=== PATIENT | female | born 1960 | race Caucasian/White ===

== ENCOUNTER 2021-04-06 09:04 | Inpatient (IN) ==
--- NOTE | 2021-04-03 15:18 | Anesthesiology Consultation ---
Date of Service April 03, 2021 Assessment & Plan (1) Encounter for pre-operative examination: Chart Review Chart Review: Acceptable Risk for Surgery (pending preop Covid testing results and lab DOS) and Patient NOT seen in Pre Admission Testing -On current chemo- will order CBC with diff for DOS Per nursing assessment 04/03/2021, patient admits to local travel only- resides in [facility]. Wears mask in public if crowded. Patient is not vaccinated for Covid. No known Covid infection in the past 90 days. No known Covid positive contacts or Covid related symptoms. Preop Covid testing scheduled 04/04= will await results. Will also order Jackson for DOS secondary to patient not wearing mask all the time in public/not vaccinated for Covid. History Surgery Operation Date: 04/06/21 14:25 Proposed Procedures p Insertion of Access Port with Fluoroscopy - Ishan Holguin, DO Height/Weight Height: 5 ft 2 in Weight: 88.904 kg Allergies Allergy/AdvReac Type Severity Reaction Status Date / Time Penicillins Allergy Intermediate severe Verified 04/03/21 14:17 headaches Sulfa (Sulfonamide Allergy Intermediate severe Verified 04/03/21 14:17 Antibiotics) headaches Medications Home Medications Medication Instructions Recorded Confirmed Last Taken gabapentin 100 mg capsule 200 mg PO TID cap 03/21/21 04/03/21 Unknown ibuprofen 200 mg tablet 200 mg PO Q6H PRN 03/21/21 04/03/21 Unknown levothyroxine 125 mcg capsule 125 mcg PO QAM 03/21/21 04/03/21 Unknown loratadine 10 mg tablet (Claritin) 10 mg PO HS 03/21/21 04/03/21 Unknown fentanyl 12 mcg/hr transdermal 1 patch TRANSDERMAL Q72H PRN 03/30/21 04/03/21 Unknown patch ondansetron 8 mg disintegrating 8 mg PO Q8H PRN 04/03/21 04/03/21 Unknown tablet Past Medical History Medical History Hypothyroidism Small cell lung cancer, left upper lobe stage IIIa T2, N2, M0 Thyroid nodule Past Family History Family History Mother Cancer ovarian, uterine and colon Father No problems noted. Sister Cancer Leukemia Sister Lung disease Emphysema Other No family history of adverse response to anesthesia Past Surgical History Surgical History H/O thyroidectomy H/O tubal ligation H/O: hysterectomy LUCIUS BSO History of bronchoscopy x2 History of carpal tunnel surgery bilt hands History of tooth extraction all teeth Hx of colonoscopy S/P right rotator cuff repair Social History Smoking Status: Former smoker Do You Dip or Chew Tobacco: No Smoking End Date: quit 18yrs ago Hx Alcohol Use: No Hx Substance Use: No substance use type: does not use Lab Results Anesthesia Preop Results Results Anesthesia Widget: WBC 3.52 K/uL (4.8-10.8) L 03/20/21 Hgb 13.0 g/dL (12.0-16.0) 03/20/21 Hct 38.6 % (37-47) 03/20/21 Plt 167 K/uL (130-400) 03/20/21 Na 136 mmol/L (136-145) 03/20/21 K 3.8 mmol/L (3.5-5.1) 03/20/21 Cl 102 mmol/L (98-107) 03/20/21 CO2 31 mmol/L (21-32) 03/20/21 BUN 12 mg/dl (7-18) 03/20/21 Creat 0.69 mg/dl (0.6-1.2) 03/20/21 Glucose Level 118 mg/dl (70-99) H 03/20/21 Testing Electrocardiogram Date: 11/10/20 Findings: + NSR @ (85 bpm) Normal EKG per cardio. Chest X-Ray Date: 02/13/21 1 view CXR (postprocedure evaluation) No evidence of hemothorax or pneumothorax. Other Testing Chest CT 03/28/2021 = enlarging 6.7 cm prevascular mass. Stable 34 mm left upper lobe pulmonary nodule. Multiple right lung groundglass pulmonary nodule similar to the preceding study. Progressive left lower lobe atelectasis/consolidation. Brain MRI 03/09/2021 = no evidence of metastatic disease.
[~2021-04-06 09:04] MED LIST: CLINDAMYCIN 900 MG in DEXTROSE 5% 50 ML IV SCH; LR 15ML/HR IV SCH
[2021-04-06] MEDS ORDERED: ATROPINE SULFATE 0.1 MG/ML 10ML SYR IV PRN (09:48)
[2021-04-06] MEDS ORDERED: LABETALOL HCL IV 5 MG/ML 20ML IV PRN (09:48)
[2021-04-06] MEDS ORDERED: PHENYLEPHRINE 100MCG/ML 5ML SYR IV PRN (09:48)
[2021-04-06] MEDS ORDERED: fentaNYL citrate 100 MCG/2 ML VIAL IV PRN (09:48)
[2021-04-06] MEDS ORDERED: ePHEDrine sulfate 50 MG/ML AMP IV PRN (09:48)
[2021-04-06] MEDS ORDERED: ONDANSETRON INJ 2 MG/ML 2 ML VIAL IV PRN ×2 (09:48→12:36)
[2021-04-06 11:13] LABS: Hematocrit (blood only) 33.2 % (37-47); Hemoglobin 11.9 g/dL (12.0-16.0); Mean Corpuscular Hemoglobin 30.6 pg (25-34); Mean Corpuscular Hgb Conc 35.8 g/dL (32-36); Mean Corpuscular Volume 85.3 fL (80-100); Platelet Count 7 K/uL (130-400); RDW Coefficient of Variation 12.1 % (11.5-14.5); Red Blood Count 3.89 M/uL (4.2-5.4); White Blood Count 0.59 K/uL (4.8-10.8)
[2021-04-06 11:26] LABS: Basophils # (auto) 0.05 K/uL (0-0.2); Basophils % (auto) 8.5 %; Lymphocytes # (auto) 0.53 K/uL (1.2-3.4); Lymphocytes % (auto) 89.8 %; Monocytes # (auto) 0.01 K/uL (0.11-0.59); Monocytes % (auto) 1.7 %; Platelet Estimate SIGNIFIC DECREASED (Normal)
--- NOTE | 2021-04-06 11:52 | History & Physical Bridge Note ---
Date of Service April 06, 2021 History & Physical Bridge Note I have examined the patient, reviewed the History & Physical and in the interval since the performance of the History & Physical I have noted the following changes of clinical significance: Patient presented to the operating room today for port placement for small cell lung cancer. According to her she has not been feeling well and is extremely weak and lethargic. He has had to help lift her at times. She had chemotherapy last week. Anesthesia chaim labs this morning which showed a white blood cell count of less than 1000, platelets 7000 with 0 neutrophils. I am going to cancel her procedure today. I have contacted Dr. Apodaca who is requesting the hospitalist admit the patient and he would assist them with guidance for her care.
--- NOTE | 2021-04-06 12:12 | Communication Note ---
Date of Service: April 06, 2021 The patient's WBC count and platelets are critically low. The procedure will be cancelled and the patient will be admitted to the medicine service.
[2021-04-06] MEDS ORDERED: POLYETHYLENE (MIRALAX) 17 GM PACK PO PRN (12:36)
--- NOTE | 2021-04-06 13:38 | History & Physical Report ---
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 WBC 0.59 today with ANC of 0.00 after first cycle of chemo (cisplatin and etoposide) last week [facility] Hgb stable at 11.9 Afebrile, no clinical concern for infection but work up pending - blood cultures, CMP, CXR, UA Discussed case with Dr. Hernandez of [facility], who does not feel prophylactic abx indicated at this time Follow results of infectious workup Neutropenic precautions Daily CBC with diff (2) Thrombocytopenia: Plan: Platelets of 7 (plt 167 on 03/20/21) in setting of recent chemo cycle No active bleeding - continue to monitor closely Consented, ordered 1u irradiated platelets, per Dr. Hernandez Hold second unit Monitor platelets (3) Fall: Plan: Recent fall over the weekend in setting of weakness from chemo CT head w/wo pending Fall precautions PT/OT evaluation (4) Hypothyroidism: Plan: Continue levothyroxine DVT Ppx: SCDs Code status: FULL PCP: Sally Dispo: Admitted to PCU Patient seen in collaboration with Dr. Connelly. Please see addendum. 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 Was diagnosed with lung cancer in November of this year and recently established with Dr. Apodaca. Has undergone 1 cycle of chemotherapy treatment (cisplatin and etoposide) last week from March 27-. Since then, has felt "run down" and generally weak with any type of ambulation. Lost her balance over the weekend falling onto her backside. Denies any head trauma. Endorsing intermittent lightheadedness. Presented this morning for port placement by Dr. Holguin but due to significantly abnormal lab work, procedure was cancelled and patient will be admitted to medicine service. No fever, chills, chest pain or shortness of breath. No bleeding in gums. No hematuria. No nausea, vomiting or abdominal pain. Still with normal appetite. PCP is Dr. Zavala. Allergies Allergy/AdvReac Type Severity Reaction Status Date / Time Penicillins Allergy Intermediate severe Verified 04/06/21 10:01 headaches Sulfa (Sulfonamide Allergy Intermediate severe Verified 04/06/21 10:01 Antibiotics) headaches Home Medications Medication Instructions Recorded Confirmed Type gabapentin 100 mg capsule 200 mg PO TID cap 03/21/21 04/06/21 History ibuprofen 200 mg tablet 200 mg PO Q6H PRN 03/21/21 04/06/21 History levothyroxine 125 mcg capsule 125 mcg PO QAM 03/21/21 04/06/21 History loratadine 10 mg tablet (Claritin) 10 mg PO HS 03/21/21 04/06/21 History fentanyl 12 mcg/hr transdermal 1 patch TRANSDERMAL Q72H PRN 03/30/21 04/06/21 History patch ondansetron 8 mg disintegrating 8 mg PO Q8H PRN 04/03/21 04/06/21 History tablet calcium carbonate 600 mg (1,500 1 tab PO BID 04/06/21 04/06/21 History mg)-vitamin D3 200 unit tablet (Calcium 600 + D(3)) multivitamin 1 tab PO DAILY 04/06/21 04/06/21 History omeprazole 20 mg tablet,delayed 20 mg PO DAILY 04/06/21 04/06/21 History release Past Med/Surg History Medical History High grade neuroendocrine carcinoma Hypothyroidism Obesity Small cell lung cancer, left upper lobe stage IIIa T2, N2, M0 Thyroid nodule Surgical History H/O thyroidectomy H/O tubal ligation H/O: hysterectomy LUCIUS BSO History of bronchoscopy x2 History of carpal tunnel surgery bilt hands History of tooth extraction all teeth Hx of colonoscopy S/P right rotator cuff repair Family History Mother Cancer ovarian, uterine and colon Father No problems noted. Sister Cancer Leukemia Sister Lung disease Emphysema Other No family history of adverse response to anesthesia Social History Smoking Status: Former smoker Years Smoked: 20; Smoking End Date: quit 18yrs ago; Second Hand Exposure: Yes; Do You Dip or Chew Tobacco: No; Tobacco Cessation Education Requested by Patient: No Hx Alcohol Use: No Hx Substance Use: No Preferred Language: Greenlandic Communication Ability: Effective Visual Impairment: No Limitations Hearing Ability: Normal Clinical Exercise Physiologist Required: No Beliefs That Will Affect Care: None marital status: Current Living Situation: Spouse and Family Current Living Situation Comment: Lives with , grandson, grandson's and great grandkids current occupational status: other current occupation: Lobbyist How many Children do You have: 2 Other Information That Helps Us Care for You: No Feels Safe at Home: Yes Safety Concerns: Feels Safe At This Time caffeine: Yes during the past year weight has: remained stable Dental Care, Regularly: No Physical Activity Frequency: 1-2 Times per Week Assistive Devices: Denture - Upper, Denture - Lower and Glasses Review of Systems Review of Systems: At least ten systems reviewed and negative except as noted in the HPI. Physical Exam Physical Exam: General Appearance: WD/WN, vitals as above, appears ill, pleasant, conversing easily Head: normocephalic, atraumatic Eyes: normal inspection, PERRL, conjunctivae normal, anicteric sclerae ENT: external ear and nose normal, oropharynx normal Neck: normal visual inspection, trachea midline, no thyromegaly Respiratory: normal respiratory effort, lungs clear to auscultation, no wheeze, rales, rhonchi. No accessory muscle use Cardiovascular: regular rate, rhythm, no murmur, normal peripheral pulses, no BLE edema. Vessels: no JVD Chest: normal inspection of chest Abdomen/GI: normal bowel sounds, soft, nontender, no hepatosplenomegaly Extremities/Musculoskeletal: no cyanosis or clubbing, extremities motor strength 5/5 Neurologic: PERRL, EOMI, accommodation nl, no face palsy, no dysarthria, CN's II-XI intact bilaterally and moves all extremities Psychiatric: A+Ox3, euthymic affect Skin: no rashes, normal color, warm/dry Results & Data Results & Data ([facility]) Vital Signs (Past 12 Hours) Vital Signs Temp Pulse Resp BP Pulse Ox 04/06/21 10:04 36.6 C 92 H 20 103/70 96 Laboratory Results Short CBC 04/06/21 Range/Units 10:09 WBC 0.59 L* (4.8-10.8) K/uL Hgb 11.9 L (12.0-16.0) g/dL Hct 33.2 L (37-47) % Plt Count 7 L* (130-400) K/uL Code Status & VTE Plan VTE Prophylaxis Plan VTE Prophylaxis will be ordered: Yes Supervising Physician Co-Signing Physician Notes I saw this patient with the physician assistant gm of content & delivery, I participated in the history, physical, review of systems, and physical exam. I reviewed the medications with the patient and the physician assistant gm of content & delivery and helped reconcile the medications. I helped take a detailed family and social history as well. I formulated the assessment and plan personally with the physician assistant gm of content & delivery and went over it with the patient. ROS-No Headache, No Visual Changes, No Nausea, No Vomiting, No Fever, No Chills, No Neck Pain or Stiffness, No Chest Pain, No Palpitations, No SOB, No TORRE, No Cough, No Sputum, No Wheezing, No Abdominal Pain, No Diarrhea, No Hematemesis, No Hemoptysis, No Unexpected Weight Loss, No Flank pain, No Melena, No Hematochezia, No Frequency, No Urgency, No Burning, No Hematuria, No Rashes, No Diaphoresis. Appetite is Normal Physical Exam Gen-AAO x 3, NAD, Afebrile, Weak, Pleasant Head-NCAT, EOMI, PERRLA, Anicteric Sclera, No Posterior Pharyngeal Erythema Neck-Supple, No JVD, No Thyromegaly, No Masses, No LAD, No Bruits Lungs-Clear to Auscultation Bilaterally, No Rales, No Rhonchi, No Wheezing, No Crepitus Chest-No S4, +S1, +S2, No S3, No Murmurs, No Rubs, No Gallops, No Ectopy Abdomen-Soft, Bowel Sounds Present, Non Tender, Non Distended, No Hepatomegaly, No Splenomegaly, No Palpable Masses, No Rebound, No Rigidity, No Guarding Musculoskeletal-Full Range of Motion Bilaterally, No CVAT Extremities-No Cyanosis, No Clubbing, No Edema Nuero-Cranial Nerves II-XII grossly intact, Motor WNL, DTRs WNL, Strength WNL, Non Focal Psych-Normal Mood
[2021-04-06] MEDS ORDERED: fentaNYL 12 MCG/HR TDSY TD PRN (14:39)
[2021-04-06 15:24] LABS: Albumin Globulin Ratio 0.8 (0.9-2); Albumin Level 2.8 gm/dl (3.4-5.0); Bilirubin,Total 1.4 mg/dl (0.2-1); Calcium 8.1 mg/dl (8.5-10.1); Creatinine Clr Calc Pharmacy 67.6 ml/min; Est GFR (African American) 80.5 ml/min; Est GFR (Non-African American) 69.5 ml/min; Globulin 3.7 gm/dl (2.5-4.0); Total Protein 6.5 gm/dl (6.4-8.2)
--- NOTE | 2021-04-06 15:24 | XRay Report ---
XR chest 1V portable CLINICAL HISTORY: Admission. Small cell carcinoma. COMPARISON STUDY: Chest CT March 28, 2021. FINDINGS: There is no pneumothorax. Elevation of the left hemidiaphragm with left basilar opacity is unchanged. This opacity favors atelectasis. Note is again made of a 3.3 cm left upper lobe mass as we ll as upper mediastinal lymphadenopathy, better depicted on chest CT. Enlargement of the cardiac silh ouette is unchanged. No evidence for pulmonary edema. IMPRESSION: 1. Redemonstration of the left upper lobe mass and upper mediastinal lymphadenopathy, better depicted by chest CT 2. No change in elevation of the left hemidiaphragm with associated airspace opacity which favors ate lectasis. 3. Cardiomegaly without evidence for pulmonary edema. ACT 112: Negative or not required by law. Electronically signed by: Ponce Jacome M.D. 04/06/2021 3:23 PM
[2021-04-06] MEDS ORDERED: CHECK fentaNYL PATCH PLACEMENT SCH (16:00)
[2021-04-06 17:24] LABS: Appearance Urine Clear (Clear); Bacteria Urine Automated Negative (Negative); Bilirubin Urine Negative (Negative); Blood Urine Negative (Negative); Color Urine Dark Yellow; Epithelial Cell Urine Auto >30 /lpf (0-5); Glucose Urine UA Negative (Negative); Ketones Urine Negative (Negative); Leukocyte Esterase Urine Negative (Negative); Nitrite Urine Negative (Negative); Protein Urine 2+ (Negative); RBC Urine Automated 0-4 /hpf (0-4); Specific Gravity Urine > 1.045 (1.000-1.030); Urobilinogen Urine Negative (Negative)
--- NOTE | 2021-04-06 17:51 | CT Scan Report ---
CT OF THE HEAD WITHOUT CONTRAST CLINICAL HISTORY: fall @ home COMPARISON STUDY: MRI of the brain March 09, 2021. CT DOSE: 537.48 mGy.cm TECHNIQUE: Helical axial images of the head were obtained without IV contrast. Automated exposure con trol was utilized for the study. A dose lowering technique was utilized adhering to the principles o f ALARA. FINDINGS: No acute intracranial hemorrhage, midline shift or mass effect is present. The ventricular system is unremarkable. The basal cisterns are patent. No extra-axial collections are present. There are no findings to suggest acute dural sinus thrombosis or acute territorial infarct. No significant calvarial abnormalities are present. There is an air-fluid level within the left sphenoid sinus with secretions. IMPRESSION: 1. No acute intracranial findings. 2. No calvarial fracture. 3. Air-fluid level within the left sphenoid sinus with secretions. ACT 112: Negative or not required by law. Electronically signed by: Ponce Jacome M.D. 04/06/2021 5:50 PM
[2021-04-06] MEDS ORDERED: POTASSIUM CHLORIDE CRTAB 20 MEQ TABCR PO STA (18:38)
[2021-04-06] MEDS ORDERED: POTASSIUM CHLORIDE 40 MEQ in SODIUM CHLORIDE 0.9% 1000ML 500 ML IV ONE (18:38)
[2021-04-06] MEDS ORDERED: SODIUM CHLORIDE 0.9% 1000ML 500 ML IV ONE (18:40)
[2021-04-06] MEDS ORDERED: POTASSIUM CHLORIDE 40 MEQ in SODIUM CHLORIDE 0.9% 1000ML 1,000 ML IV SCH (19:15)
[2021-04-06] MEDS ORDERED: CONSULT PHARMACY STA (19:18)
[2021-04-06] MEDS ORDERED: CEFEPIME CONSULT ACTIVE PRN (19:36)
[2021-04-06] MEDS ORDERED: VANCOMYCIN CONSULT ACTIVE PRN (19:42)
[2021-04-06] MEDS ORDERED: VANCOMYCIN HCL 1,750 MG in SODIUM CHLORIDE 0.9% 500 ML IV ONE (20:00)
[2021-04-06] MEDS: CEFEPIME 2,000 MG in SYRINGE 0 ML IV SCH (20:33)
[2021-04-06] MEDS: ACETAMINOPHEN 325 MG TAB PO PRN (20:50)
[2021-04-06] MEDS: CALCIUM 600MG + VIT D 400 IU TAB PO SCH (20:52)
[2021-04-06] MEDS: LORATADINE 10 MG TAB PO SCH (20:52)
[2021-04-06] MEDS: GABAPENTIN 100 MG CAP PO SCH (20:52)
--- NOTE | 2021-04-06 20:55 | Pharmacy Report ---
Pharmacy Abx Initial Consult - Date of Service April 06, 2021 - Pharmacy Dosing Scope Date of Consult: 04/06/21 Consultation requested by: Lane[facility] is consulted to initiate vancomycin/cefepime IV dosing therapy, order appropriate labs and adjust drug dose/frequency. - Subjective The patient is a 60 year old F admitted on 04/06/21 12:36. - Objective Height: 5 ft 2 in Weight: 88.1 kg Vital Signs (Past 12hrs): Vital Signs Temp Pulse Pulse Resp BP BP Pulse Ox 04/06/21 20:28 38.5 C H 100 H 04/06/21 19:53 36.6 C 103 H 23 116/77 95 04/06/21 17:03 37.7 C H 100 H 24 131/82 95 04/06/21 16:17 37.5 C 96 H 24 139/74 95 04/06/21 15:47 37.7 C H 98 H 20 119/77 91 04/06/21 15:32 37.4 C 99 H 20 137/71 90 04/06/21 15:07 37.2 C 105 H 24 111/85 90 04/06/21 10:04 36.6 C 92 H 20 103/70 96 Lab Results (24hrs): Laboratory Tests (24 Hours) 04/06/21 04/06/21 14:29 10:09 WBC 0.59 L* Neut # (Auto) 0.00 L* Creatinine 0.89 Est Cr Clr Drug Dosing 67.6 Micro Results: 04/06/21 14:33 Aerobic Blood Culture - Pending Blood Anaerobic Blood Culture - Pending 04/06/21 14:20 Aerobic Blood Culture - Pending Blood Anaerobic Blood Culture - Pending - Risk Factors for Resistance * Immunocompromised (chemotherapy) - Assessment & Plan Assessment 60 year old F with a PMH of large cell neuroendocrine carcinoma of the L lung initiated on vancomycin and cefepime IV empirically for neutropenic fever. Received chemo last week. Neutropenic and thrombocytopenic on arrival w/ Tmax 38.5. Blood cx pending. Renal function is stable. Plan Vancomycin IV * Loading dose: 1750 mg (~20 mg/kg) * Maintenance dose: 1000 mg IV (~11 mg/kg) every 12 hours * Goal trough: 10-20mcg/mL (pending source) * Will obtain a trough level at steady state if continued or sooner if clinically indicated Cefepime * 2gm IV q8h for CrCl >60mL/min Pharmacy will continue to follow and will adjust dose/frequency as necessary. Thank you.
[2021-04-07] MEDS: CEFEPIME 2,000 MG in SYRINGE 0 ML IV SCH ×3 (03:19→20:10)
[2021-04-07] MEDS ORDERED: ALBUT/IPRATROP 3MG/0.5MG NEB 3 ML VIAL NEB PRN (03:52)
[2021-04-07] MEDS ORDERED: ALBUT/IPRATROP 3MG/0.5MG NEB 3 ML VIAL NEB STA (03:52)
[2021-04-07] MEDS: LEVOTHYROXINE SODIUM 125 MCG TABLET PO SCH (05:31)
[2021-04-07] MEDS: ACETAMINOPHEN 325 MG TAB PO PRN ×2 (06:14→09:57)
[2021-04-07] MEDS ORDERED: methylPREDNISolone 40 MG in SYRINGE 0 ML IV STA (06:24)
[2021-04-07] MEDS ORDERED: KETOROLAC TROMETHAMINE 15 MG/ML VIAL IV ONE (06:26)
[2021-04-07] MEDS ORDERED: MAGNESIUM SULFATE / D5W 1 GM/100 ML BAG IV ONE (06:31)
[2021-04-07 06:45] LABS: BUN Creatinine Ratio 23.8 (10-20); Calcium 7.7 mg/dl (8.5-10.1); Creatinine Clr Calc Pharmacy 102.8 ml/min; Est GFR (African American) 114.5 ml/min; Est GFR (Non-African American) 98.8 ml/min; Potassium 3.8 mmol/L (3.5-5.1)
[2021-04-07 06:56] LABS: Magnesium 2.1 mg/dl (1.8-2.4)
[2021-04-07] MEDS ORDERED: XOPENEX/ATROVENT 1.25mg/0.5MG NEB COMBO NEB SCH (07:00)
[2021-04-07 07:11] LABS: Hematocrit (blood only) 31.4 % (37-47); Hemoglobin 11.1 g/dL (12.0-16.0); Mean Corpuscular Hemoglobin 30.7 pg (25-34); Mean Corpuscular Hgb Conc 35.4 g/dL (32-36); Mean Platelet Volume 10.2 fL (7.4-10.4); Platelet Count 14 K/uL (130-400); RDW Coefficient of Variation 12.4 % (11.5-14.5); RDW Standard Deviation 40.2 fL (36.4-46.3); Red Blood Count 3.61 M/uL (4.2-5.4); White Blood Count 1.08 K/uL (4.8-10.8)
--- NOTE | 2021-04-07 07:16 | XRay Report ---
XR chest 1V portable CLINICAL HISTORY: crackles COMPARISON STUDY: April 06, 2021 at April 06, 2021 FINDINGS: No pneumothorax. Redemonstration of elevation of the left hemidiaphragm, and atelectasis at the left base was better s een on recent CT of the chest. Small to moderate left pleural effusion might have similar appearance however was not visualized on recent CT exam. Redemonstration of the large left upper lobe mass is unchanged since prior study. Cardiomediastinal silhouette is mildly enlarged. No significant pulmonary vascular congestion.. Osseous structures: unremarkable IMPRESSION: 1. Redemonstration of the atelectasis at the left base possible pleural effusion. 2. Unchanged mass at the left upper lung region. 3. Mild cardiomegaly. ACT 112: Negative or not required by law. The above report was generated using voice recognition software. It may contain grammatical, syntax o r spelling errors. Electronically signed by: Nani Maddox DO 04/07/2021 7:14 AM
[2021-04-07] MEDS: LEVALBUTEROL 1.25MG/0.5ML NEB INH SCH ×3 (07:22→19:14)
[2021-04-07] MEDS: IPRATROPIUM BROMIDE NEB SOLN 0.02% 2.5 ML VIAL INH SCH ×3 (07:22→19:14)
[2021-04-07 07:24] LABS: Base Excess ABG 1.1 mEq/L (-9-1.8); HCO3 ABG 24 mmol/L (19-24); PCO2 ABG 32 mmHg (35-46); PO2 ABG 75 mmHg (80-95); pH ABG 7.49 (7.35-7.45)
[2021-04-07 07:25] LABS: Allen Test Pos (Pos)
[2021-04-07] MEDS ORDERED: DOXYCYCLINE HYCLATE 100 MG in DEXTROSE 5% 100 ML IV STA (07:44)
[2021-04-07] MEDS ORDERED: VANCOMYCIN HCL 1,000 MG in SODIUM CHLORIDE 0.9% 250 ML IV SCH (08:00)
[2021-04-07 08:07] LABS: Basophils # (auto) 0.05 K/uL (0-0.2); Basophils % (auto) 4.6 %; Lymphocytes # (auto) 0.85 K/uL (1.2-3.4); Lymphocytes % (auto) 78.7 %; Monocytes # (auto) 0.18 K/uL (0.11-0.59); Monocytes % (auto) 16.7 %
--- NOTE | 2021-04-07 08:09 | XRay Report ---
XR chest 1V portable CLINICAL HISTORY: wheeze COMPARISON STUDY: Chest radiograph April 06, 2021. FINDINGS: The left upper lobe mass is again noted. Note is also made of mediastinal lymphadenopathy i s better depicted on chest CT. Left basilar opacity favors atelectasis. Cardiomegaly is unchanged. Th ere is no evidence for pulmonary edema. IMPRESSION: 1. Redemonstration of the left upper lobe mass and upper mediastinal lymphadenopathy. 2. Left basilar opacity which favors atelectasis. Stable elevation of the left hemidiaphragm. ACT 112: Negative or not required by law. Electronically signed by: Ponce Jacome M.D. 04/07/2021 8:08 AM
[2021-04-07] MEDS: POTASSIUM CHLORIDE / WTR 10 MEQ/100 ML PLCT IV SCH ×2 (09:00→09:56)
[2021-04-07] MEDS: GABAPENTIN 100 MG CAP PO SCH ×3 (09:09→22:47)
[2021-04-07] MEDS: guaiFENesin 600 MG TABCR PO SCH ×2 (09:09→20:16)
[2021-04-07] MEDS: CALCIUM 600MG + VIT D 400 IU TAB PO SCH ×2 (09:09→20:16)
[2021-04-07] MEDS: PANTOprazole 40 MG TAB PO SCH (09:09)
[2021-04-07] MEDS: MULTIVITAMIN TAB PO SCH (09:09)
--- NOTE | 2021-04-07 09:19 | Communication Note ---
Date of Service: April 07, 2021 Patient still with intermittent fever despite ongoing vancomycin and cefepime Rx. Dry cough symptoms as per patient. Add doxycycline to regimen for atypical coverage.
--- NOTE | 2021-04-07 11:55 | Hospitalist Progress Note ---
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 Concurrent chemo and radiation recommended by Dr. Stiles, oncologist. Presents with neutropenic fever after first cycle of chemo (cisplatin and etoposide) last week. Has not yet received XRT which is planned. Port was to be placed, however, procedure deferred in setting of current illness and abnormal labs. Cont broad spectrum coverage with vancomycin, cefepime and doxycycline pending culture results and clinical improvement. Daily CBC with diff. (2) Acute metabolic encephalopathy: Plan: Likely related to underlying infection vs underlying malignancy.. Uncertain etiology at this time. Cont plan in #1. (Of note, went back to re-evaluate patient during lunch and she was independently eating her lunch). OK to cont gabapentin at this time. Notably not on fentanyl patch, either. (3) High grade neuroendocrine carcinoma: Plan: concurrent chemo and XRT recommended by Dr. Stiles. Recently started outpatient treatment as above. (4) Fall: Plan: Recent fall over the weekend in setting of weakness from chemo CT head revealing no acute findings. Acute metabolic encephalopathy presumably metabolic in nature. Fall precautions. PT/OT evaluation when more aware. (5) Thrombocytopenia: Plan: Platelets of 7 (plt 167 on 03/20/21) in setting of recent chemo cycle No active bleeding - continue to monitor closely Consented, ordered 1u irradiated platelets, per Dr. Hernandez PLT this am is 14K-defer to oncology to transfuse as needed. (6) Hypothyroidism: Plan: Continue levothyroxine per home regimen. (7) DVT prophylaxis: Plan: Contraindicated in setting of thrombocytopenia Neutropenic precautions Full code Dispo-cont hospitalization. Flori Maria DO [facility] Hospitalist Admission and Anticipated Discharge Date Admission Date: April 06, 2021 Subjective 60 yo FF with h/o large neuroendocrine carcinoma of left lung admitted with neutropenic fever and electrolyte abnormalities. She is lethargic today and will arouse briefly to verbal stimulation but otherwise is obtunded. Cannot obtain ROS as a result. he is notably diaphoretic and vitals and work of breathing is stable. Primary nurse noting Tylenol on board. Tm 38.5C at 20:20 last night. Review of Systems Review of Systems: cannot be obtained as patient is minimally responsive to questioning at this time and is very fatigued. Physical Exam Physical Exam: CONSTITUTIONAL: WNWD, vitals as above, ill-appearing, diaphoretic. EYES: pupils are round and equal bilaterally, normal conjunctivae, no scleral icterus ENT: external ear and nose normal, MMM RESPIRATORY: clear to auscultation bilaterally, no crackles, rales or wheezes, normal respiratory effort . Limited exam as patient unable to participate or follow instructions with increased sleepiness. CARDIOVASCULAR: regular rate and rhythm, S1 and 2 heard without murmurs, gallops or rubs, no JVD, no peripheral edema CHEST: inspection of chest was normal GASTROINTESTINAL: soft, nondistended, no guarding. MUSCULOSKELETAL: head is normocephalic and atraumatic, cannot be assessed with decreased level of consciousness. SKIN: warm and diaphoretic. NEUROLOGIC: No facial palsy, no dysarthria. Decreased cognition, Limited assessment. Results & Data Results & Data ([facility]) Vital Signs (Past 12 Hours) Vital Signs Temp Pulse Pulse Resp BP BP Pulse Ox 04/07/21 10:00 86 23 127/74 94 04/07/21 09:13 91 H 33 H 125/73 93 04/07/21 09:00 36.6 C 04/07/21 07:23 100 H 20 98 04/07/21 06:45 38.1 C H 04/07/21 06:21 26 H 123/88 94 04/07/21 06:14 103 H 04/07/21 06:09 37.9 C H 04/07/21 05:16 37.7 C H 24 04/07/21 04:14 86 26 H 97 04/07/21 03:13 36.5 C 83 20 131/91 97 Laboratory Results Short CBC 04/07/21 Range/Units 05:52 WBC 1.08 L (4.8-10.8) K/uL Hgb 11.1 L (12.0-16.0) g/dL Hct 31.4 L (37-47) % Plt Count 14 L* D (130-400) K/uL BMP 04/06/21 04/06/21 04/07/21 14:29 15:38 05:52 Sodium 122 L 129 L D Potassium 3.0 L 3.8 D Chloride 87 L 97 L Carbon Dioxide 29 25 BUN 15 14 Creatinine 0.89 0.58 L D Glucose 91 100 H Calcium 8.1 L 7.7 L Liver Function 04/06/21 04/06/21 Range/Units 14:29 15:38 Total Bilirubin 1.4 H (0.2-1) mg/dl AST 157 H (15-37) U/L ALT 62 (12-78) U/L Alkaline Phosphatase 86 (45-117) U/L Albumin 2.8 L (3.4-5.0) gm/dl Urine 04/06/21 Range/Units 17:10 Urine Color Dark Yellow Urine Appearance Clear (Clear) Urine pH 6.0 (4.5-7.5) Ur Specific [place] > 1.045 H (1.000-1.030) Urine Protein 2+ H (Negative) Urine Glucose (UA) Negative (Negative) Medications Administered Current Inpatient Medications Acetaminophen (Acetaminophen 325 Mg Tab) 650 mg PO Q4H PRN PRN Reason: Pain or Fever Stop: 05/06/21 12:35 Last Admin: 04/07/21 09:57 Dose: 650 mg Documented by: Albuterol (Albut/Ipratrop 3mg/0.5mg Neb 3 Ml Vial) 3 ml NEB Q2H PRN PRN Reason: Wheezing Stop: 05/07/21 03:51 Doxycycline Hyclate (Doxycycline Hyclate 100 Mg Cap) 100 mg PO BID KEVIN Stop: 04/14/21 20:59 Gabapentin (Gabapentin 100 Mg Cap) 200 mg PO TID KEVIN Stop: 05/06/21 20:59 Last Admin: 04/07/21 09:09 Dose: 200 mg Documented by: Guaifenesin (Guaifenesin 600 Mg Tabcr) 600 mg PO Q12 KEVIN Stop: 05/07/21 07:44 Last Admin: 04/07/21 09:09 Dose: 600 mg Documented by: Cefepime HCl 2,000 mg/ Syringe 20 mls @ 5 mls/min IV Q8H KEVIN Stop: 04/08/21 19:59 Last Admin: 04/07/21 11:01 Dose: 5 mls/min Documented by: Vancomycin HCl 1,000 mg/ (Sodium Chloride) 270 mls @ 200 mls/hr IV Q12H KEVIN Stop: 04/08/21 19:59 Ipratropium [place] (Ipratropium [place] Neb Soln 0.02% 2.5 Ml Vial) 0.5 mg INH Q6R [facility] Stop: 05/07/21 06:59 Last Admin: 04/07/21 07:22 Dose: 0.5 mg Documented by: Levalbuterol HCl (Levalbuterol 1.25mg/0.5ml Neb) 1.25 mg INH Q6R [facility] Stop: 05/07/21 06:59 Last Admin: 04/07/21 07:22 Dose: 1.25 mg Documented by: Levothyroxine Sodium (Levothyroxine Sodium 125 Mcg Tablet) 125 mcg PO DAILYBB S Stop: 05/07/21 06:29 Last Admin: 04/07/21 05:31 Dose: 125 mcg Documented by: Loratadine (Loratadine 10 Mg Tab) 10 mg PO HS [facility] Stop: 05/06/21 20:59 Last Admin: 04/06/21 20:52 Dose: 10 mg Documented by: Miscellaneous Information (Cefepime Consult Active) 1 ea N/A UD PRN PRN Reason: Consult Stop: 05/06/21 19:35 Miscellaneous Information (Vancomycin Consult Active) 1 ea N/A UD PRN PRN Reason: Consult Stop: 05/06/21 19:41 Multivitamins (Multivitamin Tab) 1 tab PO DAILY [facility] Stop: 05/07/21 08:59 Last Admin: 04/07/21 09:09 Dose: 1 tab Documented by: Multivitamins/Minerals (Calcium 600mg + Vit D 400 Iu Tab) 1 tab PO BID [facility] Stop: 05/06/21 20:59 Last Admin: 04/07/21 09:09 Dose: 1 tab Documented by: Ondansetron HCl (Ondansetron Inj 2 Mg/Ml 2 Ml Vial) 4 mg IV Q6H PRN PRN Reason: Nausea Stop: 05/06/21 12:35 Pantoprazole Sodium (Pantoprazole 40 Mg Tab) 40 mg PO DAILY [facility] Stop: 05/07/21 08:59 Last Admin: 04/07/21 09:09 Dose: 40 mg Documented by: Polyethylene Glycol (Polyethylene (Miralax) 17 Gm Pack) 17 gm PO DAILY PRN PRN Reason: Constipation Stop: 05/06/21 12:35
[2021-04-07 14:03] LABS: BUN Creatinine Ratio 18.2 (10-20); Calcium 7.7 mg/dl (8.5-10.1); Creatinine Clr Calc Pharmacy 78.5 ml/min; Est GFR (African American) 97.4 ml/min; Est GFR (Non-African American) 84.1 ml/min; Potassium 3.9 mmol/L (3.5-5.1)
[2021-04-07] MEDS ORDERED: DEXTROSE 5% 1,000 ML IV SCH (17:30)
[2021-04-07 18:57] LABS: BUN Creatinine Ratio 19.7 (10-20); Creatinine Clr Calc Pharmacy 75.5 ml/min; Est GFR (Non-African American) 80.2 ml/min
[2021-04-07] MEDS: VANCOMYCIN HCL 1,000 MG in SODIUM CHLORIDE 0.9% 250 ML IV SCH (20:10)
[2021-04-07] MEDS: DOXYCYCLINE HYCLATE 100 MG CAP PO SCH (20:16)
[2021-04-07] MEDS: LORATADINE 10 MG TAB PO SCH (20:17)
[2021-04-08] MEDS: LEVALBUTEROL 1.25MG/0.5ML NEB INH SCH ×3 (00:06→13:00)
[2021-04-08] MEDS: IPRATROPIUM BROMIDE NEB SOLN 0.02% 2.5 ML VIAL INH SCH ×3 (00:06→13:00)
[2021-04-08 02:08] LABS: Calcium 7.7 mg/dl (8.5-10.1); Creatinine Clr Calc Pharmacy 93.2 ml/min; Est GFR (African American) 110.8 ml/min; Est GFR (Non-African American) 95.6 ml/min; Potassium 3.7 mmol/L (3.5-5.1)
[2021-04-08] MEDS: CEFEPIME 2,000 MG in SYRINGE 0 ML IV SCH ×2 (04:03→11:38)
[2021-04-08] MEDS: LEVOTHYROXINE SODIUM 125 MCG TABLET PO SCH (05:47)
[2021-04-08 06:29] LABS: BUN Creatinine Ratio 23.7 (10-20); Creatinine Clr Calc Pharmacy 101.9 ml/min; Est GFR (African American) 113.9 ml/min; Est GFR (Non-African American) 98.2 ml/min; Potassium 3.5 mmol/L (3.5-5.1)
[2021-04-08] MEDS ORDERED: POTASSIUM CHLORIDE CRTAB 20 MEQ TABCR PO STA (06:43)
[2021-04-08 06:44] LABS: Hematocrit (blood only) 28.1 % (37-47); Hemoglobin 9.9 g/dL (12.0-16.0); Mean Corpuscular Hemoglobin 30.8 pg (25-34); Mean Corpuscular Hgb Conc 35.2 g/dL (32-36); Mean Corpuscular Volume 87.5 fL (80-100); Mean Platelet Volume 11.9 fL (7.4-10.4); Platelet Count 25 K/uL (130-400); RDW Coefficient of Variation 12.5 % (11.5-14.5); RDW Standard Deviation 40.5 fL (36.4-46.3); Red Blood Count 3.21 M/uL (4.2-5.4); White Blood Count 2.58 K/uL (4.8-10.8)
[2021-04-08 07:07] LABS: Basophils # (auto) 0.11 K/uL (0-0.2); Basophils % (auto) 4.3 %; Eosinophils # (auto) 0.01 K/uL (0-0.5); Eosinophils % (auto) 0.4 %; Lymphocytes # (auto) 2.18 K/uL (1.2-3.4); Lymphocytes % (auto) 84.4 %; Monocytes # (auto) 0.28 K/uL (0.11-0.59); Monocytes % (auto) 10.9 %
[2021-04-08] MEDS: DOXYCYCLINE HYCLATE 100 MG CAP PO SCH (08:56)
[2021-04-08] MEDS: CALCIUM 600MG + VIT D 400 IU TAB PO SCH ×2 (08:56→20:17)
[2021-04-08] MEDS: PANTOprazole 40 MG TAB PO SCH (08:57)
[2021-04-08] MEDS: MULTIVITAMIN TAB PO SCH (08:57)
[2021-04-08] MEDS: guaiFENesin 600 MG TABCR PO SCH ×2 (08:57→20:17)
[2021-04-08] MEDS: VANCOMYCIN HCL 1,000 MG in SODIUM CHLORIDE 0.9% 250 ML IV SCH (09:01)
[2021-04-08] MEDS: GABAPENTIN 100 MG CAP PO SCH ×2 (09:01→13:55)
[2021-04-08 10:27] LABS: BUN Creatinine Ratio 18.7 (10-20); Calcium 7.3 mg/dl (8.5-10.1); Creatinine Clr Calc Pharmacy 89.7 ml/min; Est GFR (African American) 109.2 ml/min; Est GFR (Non-African American) 94.2 ml/min; Potassium 3.2 mmol/L (3.5-5.1); Uric Acid 2.7 mg/dl (2.6-7.2)
[2021-04-08 10:45] LABS: Creatinine Urine Random 17.8 mg/dl
[2021-04-08 10:46] LABS: Uric Acid Urine Random 11.3 mg/dl
--- NOTE | 2021-04-08 11:02 | Nephrology Consultation ---
Date of Consultation April 08, 2021 Assessment & Plan (1) Hyponatremia: Hypovolemic, hypoosmolar hyponatremia, the background of likely SIADH. Rate of rise of sodium, and acceptable limit. Doubt she would be having SIADH given her lung cancer, not to give any more fluids. Every 12 BMP, maintain potassium more than 4, Urine and plasma osmolality, with urine creatinine sodium uric acid and plasma uric acid. We will decide about salt tablets/urea+/-Lasix depending upon the results. (2) Neutropenic fever: As per primary oncology team. (3) Malignant neoplasm of upper lobe, left bronchus or lung: History of Present Illness Reason for Consultation: Hyponatremia Attending Physician: Flori Maria DO History of Present Illness 60 yo FF with h/o neuroendocrine carcinoma of left lung , hypothyroidism,admitted with neutropenic fever and Hyponatremia. ( Na- 122 ) on 04/06. She had undergone 1 cycle of chemotherapy treatment (cisplatin and etoposide) last week. Since then she has been feeling generally weak , dizzy with poor oral intake . She presented for port placement but due to significantly abnormal lab work, procedure was cancelled and patient will be admitted to medicine service. She received IV fluid and her Na improved to 132 ( on 04/07) and was 134 on 03/11 1 at around 10.00 am, Urine studies and Plasma and urine osmol were not done , When seen today she was somlonent and did not want to engage. She has been on Ibuprofen while inpatinet. Renal functions has been reasonably good and Vitals stable. Allergies Allergy/AdvReac Type Severity Reaction Status Date / Time Penicillins Allergy Intermediate severe Verified 04/06/21 10:01 headaches Sulfa (Sulfonamide Allergy Intermediate severe Verified 04/06/21 10:01 Antibiotics) headaches Home Medications Medication Instructions Recorded Confirmed Type gabapentin 100 mg capsule 200 mg PO TID cap 03/21/21 04/06/21 History ibuprofen 200 mg tablet 200 mg PO Q6H PRN 03/21/21 04/06/21 History levothyroxine 125 mcg capsule 125 mcg PO QAM 03/21/21 04/06/21 History loratadine 10 mg tablet (Claritin) 10 mg PO HS 03/21/21 04/06/21 History fentanyl 12 mcg/hr transdermal 1 patch TRANSDERMAL Q72H PRN 03/30/21 04/06/21 History patch ondansetron 8 mg disintegrating 8 mg PO Q8H PRN 04/03/21 04/06/21 History tablet calcium carbonate 600 mg (1,500 1 tab PO BID 04/06/21 04/06/21 History mg)-vitamin D3 200 unit tablet (Calcium 600 + D(3)) multivitamin 1 tab PO DAILY 04/06/21 04/06/21 History omeprazole 20 mg tablet,delayed 20 mg PO DAILY 04/06/21 04/06/21 History release Patient History Medical History High grade neuroendocrine carcinoma Hypothyroidism Obesity Small cell lung cancer, left upper lobe stage IIIa T2, N2, M0 Thyroid nodule Surgical History H/O thyroidectomy H/O tubal ligation H/O: hysterectomy LUCIUS BSO History of bronchoscopy x2 History of carpal tunnel surgery bilt hands History of tooth extraction all teeth Hx of colonoscopy S/P right rotator cuff repair Family History Mother Cancer ovarian, uterine and colon Father No problems noted. Sister Cancer Leukemia Sister Lung disease Emphysema Other No family history of adverse response to anesthesia Social History Smoking Status: Former smoker Years Smoked: 20; Smoking End Date: quit 18yrs ago; Second Hand Exposure: Yes; Do You Dip or Chew Tobacco: No; Tobacco Cessation Education Requested by Patient: No Hx Alcohol Use: No Hx Substance Use: No Preferred Language: [place] Communication Ability: Unable Visual Impairment: No Limitations Hearing Ability: Normal Gifted Program Teacher Required: No Beliefs That Will Affect Care: None marital status: Current Living Situation: Spouse and Family Current Living Situation Comment: Lives with , grandson, grandson's and great grandkids current occupational status: other current occupation: Res Habilitation Assistant How many Children do You have: 2 Other Information That Helps Us Care for You: No Feels Safe at Home: Yes Safety Concerns: Feels Safe At This Time caffeine: Yes during the past year weight has: remained stable Dental Care, Regularly: No Physical Activity Frequency: 1-2 Times per Week Assistive Devices: Denture - Upper, Denture - Lower and Oxygen - Continuous Review of Systems Review of Systems: Somnolant, does not want to engage, Physical Exam Physical Exam: GENERAL - Ill appearing, cachetic,Somlolent. EYES: pupils are round and equal bilaterally, normal conjunctivae, no scleral icterus ENT: external ear and nose normal, MMM RESPIRATORY: clear to auscultation bilaterally, no crackles, rales or wheezes, normal respiratory effort . CARDIOVASCULAR: regular rate and rhythm, S1 and 2 heard without murmurs, gallops or rubs, no JVD, no peripheral edema CHEST: inspection of chest was normal GASTROINTESTINAL: soft, nondistended, no guarding. MUSCULOSKELETAL: head is normocephalic and atraumatic, SKIN: warm and diaphoretic, no edema NEUROLOGIC: No facial palsy, no dysarthria. Decreased cognition. Results & Data ([facility]) Vital Signs (Past 12 Hours) Vital Signs Temp Pulse Pulse Resp BP BP Pulse Ox 04/08/21 08:00 81 04/08/21 07:59 36.8 C 92 H 24 119/74 95 04/08/21 07:03 78 20 96 04/08/21 03:37 36.5 C 78 23 120/71 94 04/08/21 01:47 36.2 C L 04/07/21 23:30 81 04/07/21 23:10 36.0 C L 04/07/21 23:00 80 20 114/74 97 04/07/21 22:50 80 38 H 98 Laboratory Results 04/08/21 05:28 04/08/21 09:56
[2021-04-08] MEDS ORDERED: POTASSIUM CHLORIDE CRTAB 20 MEQ TABCR PO ONE (11:08)
[2021-04-08] MEDS ORDERED: LEVALBUTEROL 1.25MG/0.5ML NEB INH PRN (15:01)
[2021-04-08] MEDS ORDERED: IPRATROPIUM BROMIDE NEB SOLN 0.02% 2.5 ML VIAL INH PRN (15:01)
[2021-04-08 18:34] LABS: BUN Creatinine Ratio 14.5 (10-20); Calcium 7.9 mg/dl (8.5-10.1); Creatinine Clr Calc Pharmacy 79.1 ml/min; Est GFR (African American) 97.4 ml/min; Est GFR (Non-African American) 84.1 ml/min; Potassium 3.9 mmol/L (3.5-5.1)
--- NOTE | 2021-04-08 19:13 | Hospitalist Progress Note ---
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 Concurrent chemo and radiation recommended by Dr. Stiles, oncologist. Presents with neutropenic fever after first cycle of chemo (cisplatin and etoposide) last week. Has not yet received XRT which is planned. Port was to be placed, however, procedure deferred in setting of current illness and abnormal labs. Dry cough, repeat CXR and clinical exam with findings concerning for pneumonia as the source of infection. De-escalate antibiotics to Levaquin for treatment of possible pneumonia. Tend CBC in am. (2) Acute metabolic encephalopathy: Plan: resolved. (3) High grade neuroendocrine carcinoma: Plan: concurrent chemo and XRT recommended by Dr. Stiles. Recently started outpatient treatment as above (4) Fall: Plan: Recent fall over the weekend in setting of weakness from chemo CT head revealing no acute findings. Fall precautions. PT/OT evaluation when more aware. (5) Thrombocytopenia: Plan: s/p 1 Unit irradiated platelets this admission. Platelets are improved now to 25K and there is no active bleeding. Cont to monitor CBC w diff. (6) Hypothyroidism: Plan: Continue levothyroxine (7) DVT prophylaxis: Plan: DVT Ppx: SCDs Full Code Dispo-cont hospitalization, to home when off oxygen, moving around better and feeling better. Flori Maria DO [facility] Hospitalist Admission and Anticipated Discharge Date Admission Date: April 06, 2021 Subjective 60 yo F with h/o large neuroendocrine carcinoma of left lung admitted with neutropenic fever and electrolyte abnormalities. She is mentating normally today Cell lines have improved on a.m. blood work, this was disclosed to patient. She appears to have some rapid shallow breathing at rest intermittently. She reports this is chronic since the tumor was present. She denies any increased work of breathing or chest pain at this time. Dry cough Tolerating p.o. Discussed goals for discharge home. DC lopez catheter-encouragd ambulation Review of Systems Review of Systems: All systems were reviewed and negative except as indicated in HPI above. Physical Exam Physical Exam: CONSTITUTIONAL: WNWD, vitals as above, NAD EYES: pupils are round and equal bilaterally, normal conjunctivae, no scleral icterus ENT: external ear and nose normal, MMM RESPIRATORY: Rosalio crackles at left lung base, otherwise no wheezing or rales. some increased tachypnea noted but intermittent and no increased work of breathing consistently. Some intermittent conversational dyspnea. CARDIOVASCULAR: regular rate and rhythm, S1 and 2 heard without murmurs, gallops or rubs, no JVD, no peripheral edema CHEST: inspection of chest was normal GASTROINTESTINAL: soft, nondistended, no guarding. MUSCULOSKELETAL: head is normocephalic and atraumatic, cannot be assessed with decreased level of consciousness. SKIN: warm and diaphoretic. NEUROLOGIC: CN 2-12 grossly intact throughout. No facial palsy, no dysarthria. Results & Data Results & Data ([facility]) Vital Signs (Past 12 Hours) Vital Signs Temp Pulse Pulse Resp BP Pulse Ox 04/08/21 16:00 81 04/08/21 15:17 36.8 C 93 H 19 120/79 93 04/08/21 13:00 88 20 94 04/08/21 12:48 36.8 C 95 H 19 107/80 93 04/08/21 08:00 81 04/08/21 07:59 36.8 C 92 H 24 119/74 95 Laboratory Results Short CBC 04/08/21 Range/Units 05:28 WBC 2.58 L (4.8-10.8) K/uL Hgb 9.9 L (12.0-16.0) g/dL Hct 28.1 L (37-47) % Plt Count 25 L* D (130-400) K/uL BMP 04/08/21 04/08/21 04/08/21 01:42 05:28 09:56 Sodium 133 L 133 L 134 L Potassium 3.7 3.5 3.2 L Chloride 101 100 100 Carbon Dioxide 29 29 28 BUN 14 14 13 Creatinine 0.64 0.59 L 0.67 Glucose 102 H 93 124 H Calcium 7.7 L 8.0 L 7.3 L 04/08/21 17:53 Sodium 134 L Potassium 3.9 D Chloride 102 Carbon Dioxide 29 BUN 11 Creatinine 0.76 Glucose 107 H Calcium 7.9 L Medications Administered Current Inpatient Medications Acetaminophen (Acetaminophen 325 Mg Tab) 650 mg PO Q4H PRN PRN Reason: Pain or Fever Stop: 05/06/21 12:35 Last Admin: 04/07/21 09:57 Dose: 650 mg Documented by: Albuterol (Albut/Ipratrop 3mg/0.5mg Neb 3 Ml Vial) 3 ml NEB Q2H PRN PRN Reason: Wheezing Stop: 05/07/21 03:51 Doxycycline Hyclate (Doxycycline Hyclate 100 Mg Cap) 100 mg PO BID [facility] Stop: 04/14/21 20:59 Last Admin: 04/08/21 08:56 Dose: 100 mg Documented by: Guaifenesin (Guaifenesin 600 Mg Tabcr) 600 mg PO Q12 KEVIN Stop: 05/07/21 07:44 Last Admin: 04/08/21 08:57 Dose: 600 mg Documented by: Cefepime HCl 2,000 mg/ Syringe 20 mls @ 5 mls/min IV Q8H [facility] Stop: 04/08/21 19:59 Last Admin: 04/08/21 11:38 Dose: 5 mls/min Documented by: Vancomycin HCl 1,000 mg/ (Sodium Chloride) 270 mls @ 200 mls/hr IV Q12H [facility] Stop: 04/08/21 19:59 Last Infusion: 04/08/21 11:03 Dose: Infused Documented by: Ipratropium [place] (Ipratropium [place] Neb Soln 0.02% 2.5 Ml Vial) 0.5 mg INH Q6R PRN PRN Reason: SOB/wheezing Stop: 05/07/21 06:59 Levalbuterol HCl (Levalbuterol 1.25mg/0.5ml Neb) 1.25 mg INH Q6R PRN PRN Reason: SOB/wheezing Stop: 05/07/21 06:59 Levothyroxine Sodium (Levothyroxine Sodium 125 Mcg Tablet) 125 mcg PO DAILYBB KEVIN Stop: 05/07/21 06:29 Last Admin: 04/08/21 05:47 Dose: 125 mcg Documented by: Loratadine (Loratadine 10 Mg Tab) 10 mg PO HS [facility] Stop: 05/06/21 20:59 Last Admin: 04/07/21 20:17 Dose: 10 mg Documented by: Miscellaneous Information (Cefepime Consult Active) 1 ea N/A UD PRN PRN Reason: Consult Stop: 05/06/21 19:35 Miscellaneous Information (Vancomycin Consult Active) 1 ea N/A UD PRN PRN Reason: Consult Stop: 04/08/21 19:59 Multivitamins (Multivitamin Tab) 1 tab PO DAILY KEVIN Stop: 05/07/21 08:59 Last Admin: 04/08/21 08:57 Dose: 1 tab Documented by: Multivitamins/Minerals (Calcium 600mg + Vit D 400 Iu Tab) 1 tab PO BID [facility] Stop: 05/06/21 20:59 Last Admin: 04/08/21 08:56 Dose: 1 tab Documented by: Ondansetron HCl (Ondansetron Inj 2 Mg/Ml 2 Ml Vial) 4 mg IV Q6H PRN PRN Reason: Nausea Stop: 05/06/21 12:35 Pantoprazole Sodium (Pantoprazole 40 Mg Tab) 40 mg PO DAILY [facility] Stop: 05/07/21 08:59 Last Admin: 04/08/21 08:57 Dose: 40 mg Documented by: Polyethylene Glycol (Polyethylene (Miralax) 17 Gm Pack) 17 gm PO DAILY PRN PRN Reason: Constipation Stop: 05/06/21 12:35
[2021-04-08] MEDS ORDERED: levoFLOXacin 750 MG TAB PO SCH (19:30)
[2021-04-08] MEDS: LORATADINE 10 MG TAB PO SCH (20:16)
[2021-04-09] MEDS: ACETAMINOPHEN 325 MG TAB PO PRN (01:54)
[2021-04-09 02:13] LABS: BUN Creatinine Ratio 14.4 (10-20); Creatinine Clr Calc Pharmacy 87.1 ml/min; Est GFR (African American) 108.1 ml/min; Est GFR (Non-African American) 93.3 ml/min; Potassium 3.9 mmol/L (3.5-5.1)
[2021-04-09] MEDS: LEVOTHYROXINE SODIUM 125 MCG TABLET PO SCH (04:36)
[2021-04-09] MEDS: CALCIUM 600MG + VIT D 400 IU TAB PO SCH (07:56)
[2021-04-09] MEDS: guaiFENesin 600 MG TABCR PO SCH (07:56)
[2021-04-09] MEDS: PANTOprazole 40 MG TAB PO SCH (07:56)
[2021-04-09] MEDS: MULTIVITAMIN TAB PO SCH (07:56)
--- NOTE | 2021-04-09 10:17 | Nephrology Progress Note ---
Date of Service April 09, 2021 Assessment & Plan (1) Hyponatremia: Plan: Hypovolemic, hypoosmolar hyponatremia, the background of likely SIADH. Sodium improved Urine studie shows a FE urate 0f 17% although her Ingrid - 24 and U osm is 159 , But given her cancer state , I would lean more towards SIADH. - start on salt tablets 1 g BID. - Fluid restriction of 1.5 lit. - BMP can now be changed to once daily - Repaet U osm , Ingrid in am, - Increase dietery protein to incresae free water clearance. (2) Neutropenic fever: Plan: As per primary oncology team. (3) Malignant neoplasm of upper lobe, left bronchus or lung: Admission and Anticipated Discharge Date Admission Date: April 06, 2021 Subjective 60 yo F with h/o large neuroendocrine carcinoma of left lung admitted with neutropenic fever and electrolyte abnormalities. Sititng out in chair, no issues , passing urine, NO sob. Review of Systems Review of Systems: All systems reviewed & are unremarkable except as noted in HPI & below Physical Exam Physical Exam: GENERAL -Comfortable, no Sob EYES: pupils are round and equal bilaterally, normal conjunctivae, no scleral icterus ENT: external ear and nose normal, MMM RESPIRATORY: clear to auscultation bilaterally, no crackles, rales or wheezes, normal respiratory effort . CARDIOVASCULAR: regular rate and rhythm, S1 and 2 heard without murmurs, gallops or rubs, no JVD, no peripheral edema CHEST: inspection of chest was normal GASTROINTESTINAL: soft, nondistended, no guarding. MUSCULOSKELETAL: head is normocephalic and atraumatic, SKIN: warm and diaphoretic, no edema NEUROLOGIC: No facial palsy, no dysarthria. Normal mentation. Results & Data ([facility]) Vital Signs (Past 12 Hours) Vital Signs Temp Pulse Pulse Resp BP Pulse Ox 04/09/21 10:02 36.5 C 90 37 H 131/88 96 04/09/21 08:00 81 04/09/21 04:37 36.8 C 86 20 134/84 98 04/08/21 23:49 36.7 C 108 H 20 141/91 H 95 04/08/21 23:06 81 Laboratory Results 04/08/21 05:28
[2021-04-09] MEDS ORDERED: SODIUM CHLORIDE 1 GM TABLET PO SCH (10:30)
[2021-04-09 11:30] LABS: BUN Creatinine Ratio 12.6 (10-20); Calcium 8.2 mg/dl (8.5-10.1); Est GFR (Non-African American) 89.8 ml/min; Potassium 3.6 mmol/L (3.5-5.1)
--- NOTE | 2021-04-09 11:43 | Discharge Summary ---
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 Was diagnosed with lung cancer in November of this year and recently established with Dr. Apodaca. Has undergone 1 cycle of chemotherapy treatment (cisplatin and etoposide) last week from March 27-. Since then, has felt "run down" and generally weak with any type of ambulation. Lost her balance over the weekend falling onto her backside. Denies any head trauma. Endorsing intermittent lightheadedness. Presented this morning for port placement by Dr. Holguin but due to significantly abnormal lab work, procedure was cancelled and patient will be admitted to medicine service. No fever, chills, chest pain or shortness of breath. No bleeding in gums. No hematuria. No nausea, vomiting or abdominal pain. Still with normal appetite. PCP is Dr. Zavala. Admission Exam Per Admitting Provider General Appearance: WD/WN, vitals as above, appears ill, pleasant, conversing easily Head: normocephalic, atraumatic Eyes: normal inspection, PERRL, conjunctivae normal, anicteric sclerae ENT: external ear and nose normal, oropharynx normal Neck: normal visual inspection, trachea midline, no thyromegaly Respiratory: normal respiratory effort, lungs clear to auscultation, no wheeze, rales, rhonchi. No accessory muscle use Cardiovascular: regular rate, rhythm, no murmur, normal peripheral pulses, no BLE edema. Vessels: no JVD Chest: normal inspection of chest Abdomen/GI: normal bowel sounds, soft, nontender, no hepatosplenomegaly Extremities/Musculoskeletal: no cyanosis or clubbing, extremities motor strength 5/5 Neurologic: PERRL, EOMI, accommodation nl, no face palsy, no dysarthria, CN's II-XI intact bilaterally and moves all extremities Psychiatric: A+Ox3, euthymic affect Skin: no rashes, normal color, warm/dry Principal Diagnosis Neutropenic fever Acute metabolic encephalopathy-resolved High grade neuroendocrine carcinoma Fall Pancytopenia 2/2 chemotherapy Hyponatremia Discharge Exam CONSTITUTIONAL: WNWD, vitals as above, NAD EYES: pupils are round and equal bilaterally, normal conjunctivae, no scleral icterus ENT: external ear and nose normal, MMM RESPIRATORY: CTAB, No crackles, wheezing or rales. no increased work of breathing. CARDIOVASCULAR: regular rate and rhythm, S1 and 2 heard without murmurs, gallops or rubs, no JVD, no peripheral edema CHEST: inspection of chest was normal GASTROINTESTINAL: soft, nondistended, no guarding. MUSCULOSKELETAL: head is normocephalic and atraumatic, cannot be assessed with decreased level of consciousness. SKIN: warm and diaphoretic. NEUROLOGIC: CN 2-12 grossly intact throughout. No facial palsy, no dysarthria. Discharge Data Allergies Allergy/AdvReac Type Severity Reaction Status Date / Time Penicillins Allergy Intermediate severe Verified 04/06/21 10:01 headaches Sulfa (Sulfonamide Allergy Intermediate severe Verified 04/06/21 10:01 Antibiotics) headaches Consultations 04/06/21 12:41 Consult Oncology Routine 04/07/21 17:24 Consult Nephrology Routine Procedures Performed Operation Date: 04/06/21 12:05 <No data on this case meets the specified criteria> Ordered Studies Laboratory Results WBC 2.58 K/uL (4.8-10.8) L 04/08/21 05:28 RBC 3.21 M/uL (4.2-5.4) L 04/08/21 05:28 Hgb 9.9 g/dL (12.0-16.0) L 04/08/21 05:28 Hct 28.1 % (37-47) L 04/08/21 05:28 MCV 87.5 fL (80-100) 04/08/21 05:28 MCH 30.8 pg (25-34) 04/08/21 05:28 MCHC 35.2 g/dL (32-36) 04/08/21 05:28 RDW Std Deviation 40.5 fL (36.4-46.3) 04/08/21 05:28 RDW Coeff of Deanna 12.5 % (11.5-14.5) 04/08/21 05:28 Plt Count 25 K/uL (130-400) L* D 04/08/21 05:28 MPV 11.9 fL (7.4-10.4) H 04/08/21 05:28 Immature Gran % (Auto) 0.0 % 04/08/21 05:28 Neut % (Auto) 0.0 % 04/08/21 05:28 Lymph % (Auto) 84.4 % 04/08/21 05:28 [place] % (Auto) 10.9 % 04/08/21 05:28 Eos % (Auto) 0.4 % 04/08/21 05:28 Baso % (Auto) 4.3 % 04/08/21 05:28 Neut # (Auto) 0.00 K/uL (1.4-6.5) L* 04/08/21 05:28 Lymph # (Auto) 2.18 K/uL (1.2-3.4) 04/08/21 05:28 [place] # (Auto) 0.28 K/uL (0.11-0.59) 04/08/21 05:28 Eos # (Auto) 0.01 K/uL (0-0.5) 04/08/21 05:28 Baso # (Auto) 0.11 K/uL (0-0.2) 04/08/21 05:28 Immature Gran # (Auto) 0.00 K/uL (0.00-0.02) 04/08/21 05:28 Blood Smear Review 04/06/21 10:09 Platelet Estimate SIGNIFIC DECREASED (Normal) 04/06/21 10:09 ABG pH 7.49 (7.35-7.45) H 04/07/21 07:03 ABG pCO2 32 mmHg (35-46) L 04/07/21 07:03 ABG pO2 75 mmHg (80-95) L 04/07/21 07:03 ABG HCO3 24 mmol/L (19-24) 04/07/21 07:03 ABG O2 Saturation 96.0 % (90-95) H 04/07/21 07:03 ABG Base Excess 1.1 mEq/L (-9-1.8) 04/07/21 07:03 Valerio Test Pos (Pos) 04/07/21 07:03 Barometric Pressure 728.6 mm/Hg 04/07/21 07:03 Oxygen Given 2 L 04/07/21 07:03 Sodium 136 mmol/L (136-145) 04/09/21 10:59 Potassium 3.6 mmol/L (3.5-5.1) 04/09/21 10:59 Chloride 101 mmol/L (98-107) 04/09/21 10:59 Carbon Dioxide 33 mmol/L (21-32) H 04/09/21 10:59 Anion Gap 2.0 (3-11) L 04/09/21 10:59 BUN 9 mg/dl (7-18) 04/09/21 10:59 Creatinine 0.72 mg/dl (0.6-1.2) 04/09/21 10:59 Est Cr Clr Drug Dosing 82.0 ml/min 04/09/21 10:59 Est GFR ( Amer) 104.0 ml/min 04/09/21 10:59 Est GFR (Non-Af Amer) 89.8 ml/min 04/09/21 10:59 BUN/Creatinine Ratio 12.6 (10-20) 04/09/21 10:59 Glucose 90 mg/dl (70-99) 04/09/21 10:59 POC Glucose 100 mg/dl (70-99) H 04/07/21 06:18 Osmolality 274 mOsm/kg (280-300) L 04/08/21 09:56 Uric Acid 2.7 mg/dl (2.6-7.2) 04/08/21 09:56 Calcium 8.2 mg/dl (8.5-10.1) L 04/09/21 10:59 Magnesium 2.1 mg/dl (1.8-2.4) 04/07/21 05:52 Total Bilirubin 1.4 mg/dl (0.2-1) H 04/06/21 14:29 AST 157 U/L (15-37) H 04/06/21 15:38 ALT 62 U/L (12-78) 04/06/21 14:29 Alkaline Phosphatase 86 U/L (45-117) 04/06/21 14:29 Total Protein 6.5 gm/dl (6.4-8.2) 04/06/21 14:29 Albumin 2.8 gm/dl (3.4-5.0) L 04/06/21 14:29 Globulin 3.7 gm/dl (2.5-4.0) 04/06/21 14:29 Albumin/Globulin Ratio 0.8 (0.9-2) L 04/06/21 14:29 Specimen Hemolysis 04/07/21 18:17 Urine Color Dark Yellow 04/06/21 17:10 Urine Appearance Clear (Clear) 04/06/21 17:10 Urine pH 6.0 (4.5-7.5) 04/06/21 17:10 Ur Specific [place] > 1.045 (1.000-1.030) H 04/06/21 17:10 Urine Protein 2+ (Negative) H 04/06/21 17:10 Urine Glucose (UA) Negative (Negative) 04/06/21 17:10 Urine Ketones Negative (Negative) 04/06/21 17:10 Urine Blood Negative (Negative) 04/06/21 17:10 Urine Nitrite Negative (Negative) 04/06/21 17:10 Urine Bilirubin Negative (Negative) 04/06/21 17:10 Urine Urobilinogen Negative (Negative) 04/06/21 17:10 Ur Leukocyte Esterase Negative (Negative) 04/06/21 17:10 Urine WBC (Auto) 5-10 /hpf (0-5) H 04/06/21 17:10 Urine RBC (Auto) 0-4 /hpf (0-4) 04/06/21 17:10 U Hyaline Cast (Auto) 1-5 /lpf (0-5) 04/06/21 17:10 U Epithel Cells (Auto) >30 /lpf (0-5) H 04/06/21 17:10 Urine Bacteria (Auto) Negative (Negative) 04/06/21 17:10 Ur Renal Epithelial Cell Not Reportable 04/06/21 17:10 Urine Yeast Not Reportable 04/06/21 17:10 Urine Osmolality 159 mOsm/kg (500-800) L 04/08/21 10:03 Ur Random Creatinine 17.8 mg/dl 04/08/21 10:03 Ur Random Sodium 24 mmol/L 04/08/21 10:03 Ur Random Uric Acid 11.3 mg/dl 04/08/21 10:03 COVID-19 Eval Order Covid19 [facility]Now [facility] 04/06/21 09:45 SARS-CoV-2, RNA, NAAT NEGATIVE (NEGATIVE) 04/06/21 09:[address] 04/06/21 13:11 CT OF THE HEAD WITHOUT CONTRAST CLINICAL HISTORY: fall @ home COMPARISON STUDY: MRI of the brain March 09, 2021. CT DOSE: 537.48 mGy.cm TECHNIQUE: Helical axial images of the head were obtained without IV contrast. Automated exposure control was utilized for the study. A dose lowering technique was utilized adhering to the principles of ALARA. FINDINGS: No acute intracranial hemorrhage, midline shift or mass effect is present. The ventricular system is unremarkable. The basal cisterns are patent. No extra-axial collections are present. There are no findings to suggest acute dural sinus thrombosis or acute territorial infarct. No significant calvarial abnormalities are present. There is an air-fluid level within the left sphenoid sinus with secretions. IMPRESSION: 1. No acute intracranial findings. 2. No calvarial fracture. 3. Air-fluid level within the left sphenoid sinus with secretions. ACT 112: Negative or not required by law. Electronically signed by: Ponce Jacome M.D. 04/06/2021 5:50 PM Chest X-Ray 04/07/21 03:52 XR chest 1V portable CLINICAL HISTORY: wheeze COMPARISON STUDY: Chest radiograph April 06, 2021. FINDINGS: The left upper lobe mass is again noted. Note is also made of mediastinal lymphadenopathy is better depicted on chest CT. Left basilar opacity favors atelectasis. Cardiomegaly is unchanged. There is no evidence for pulmonary edema. IMPRESSION: 1. Redemonstration of the left upper lobe mass and upper mediastinal lymphadenopathy. 2. Left basilar opacity which favors atelectasis. Stable elevation of the left hemidiaphragm. ACT 112: Negative or not required by law. Electronically signed by: Ponce Jacome M.D. 04/07/2021 8:08 AM Hospital Course (1) Neutropenic fever: Locally advanced, nonmetastatic large cell neuroendocrine carcinoma of the AIRAM. Concurrent chemo and radiation recommended by Dr. Stiles, oncologist. Presents with neutropenic fever after first cycle of chemo (cisplatin and etoposide) last week. Has not yet received XRT which is planned. Port was to be placed, however, procedure deferred in setting of current illness and abnormal labs. Dry cough, repeat CXR and clinical exam with findings concerning for pneumonia as the source of infection. De-escalate antibiotics to Levaquin for treatment of possible pneumonia. Did well overnight and patient adamant about going home to see her grandson before he leaves town. She is feeling well, ambulating around the room, breathing well on room air, denies any pain or other issues. she is tolerating PO and is not confused. Sent home to complete course of levaquin for presumed pneumonia as a source of infection. (2) Pneumonia of left lower lobe due to infectious organism: Levaquin-repeat imaging recommended to ensure complete resolution of pneumonia. (3) Acute metabolic encephalopathy: resolved. (4) High grade neuroendocrine carcinoma: concurrent chemo and XRT recommended by Dr. Stiles. Recently started outpatient treatment as above (5) Pancytopenia due to chemotherapy: s/p 1 Unit irradiated platelets this admission. Platelets are improved to 25K prior to discharge and there was no active bleeding. (6) Hyponatremia: Nephrology consulted and 1500cc fluid restriction daily as well as salt tabs were recommended. BMP in one week. (7) Fall: Recent fall over the weekend in setting of weakness from chemo CT head revealing no acute findings. Fall precautions. PT/OT evaluation when more aware. Total Time Total Time Spent Total Time Spent (In Minutes): 60 Discharge Plan Discharge Items Patient Disposition: Home - Self-Care Reason For Visit: Small Cell Lung Cancer Discharge Diagnosis: Neutropenic fever Acute metabolic encephalopathy-resolved High grade neuroendocrine carcinoma Fall Pancytopenia 2/2 chemotherapy Hyponatremia Condition on Discharge: Fair Activity: Resume your previous activity Non-emergency contact: Primary Care Provider Call non-emergency contact if: you have any medication questions, your symptoms worsen, your pain is not controlled, your pain is worsening, your pain is unusual for you, your pain is concerning for you and you have a fever Follow-up/Referrals: Ishan Holguin DO [Surgeon] - (Please call to schedule follow up in clinic within 1-2 weeks) Ofe Zavala DO [Primary Care Provider] - Diet: Regular Fluids: 1500ml (6 cups) Addtl Attending Provider Instructions: Please follow-up with your primary care provider within one week of discharge from the hospital to review new medications and to get a repeat CBC with DIFF and BMP (non-fasting). Please take all medications as instructed on your discharge list below. You have 4 more days of antibiotics left starting this evening, 04/09. Please follow-up with Dr. Stiles within one week of the hospital stay. It was a pleasure taking care of you! Please call if you have any questions or problems. You can reach a [facility] hospitalist on duty at [facility] 24 hours a day by calling [phone]. Take care of yourself. Flori Maria DO [facility] Hospitalist Pending Studies at Discharge: No Stand-Alone Forms: My [facility] Medications and DC Order Prescriptions: New levofloxacin 750 mg Tablet 750 mg PO HS Qty: 4 RF: 0 sodium chloride 1 gram Tablet 1 g PO BID Qty: 60 RF: 0 Continued gabapentin 100 mg capsule 200 mg PO TID RF: 0 levothyroxine 125 mcg capsule 125 mcg PO QAM RF: 0 ibuprofen 200 mg tablet 200 mg PO Q6H PRN (Reason: Pain) RF: 0 loratadine [Claritin] 10 mg tablet 10 mg PO HS RF: 0 fentanyl 12 mcg/hr patch 72 hour 1 patch transdermal Q72H PRN (Reason: Pain) RF: 0 ondansetron 8 mg Tablet,Disintegrating 8 mg PO Q8H PRN (Reason: Nausea) RF: 0 multivitamin Tablet 1 tab PO DAILY RF: 0 calcium carbonate-vitamin D3 [Calcium 600 + D(3)] 600 mg(1,500mg) -200 unit Tablet 1 tab PO BID RF: 0 omeprazole 20 mg Tablet,Delayed Release (Dr/Ec) 20 mg PO DAILY RF: 0 Discharge Orders: Discharge Order (Routine); Ordered 04/09/21 Ordered By: Flori Young/Other Patient Handouts: Neutropenia, Thrombocytopenia, Cancer Lung Dc, Hyponatremia Dc Admission Data Admit Date/Time: 04/06/21 12:36 Attending Provider: Flori Maria Admit Provider: Marco Connelly Primary Care Provider: Ofe Zavala Other Providers: Benson Hernandez ; Marco Connelly ; Srinivas Carrillo Other Interventions: Discharge Summary Assessment (RN) Last Done: 04/09/21 12:09
== END 2021-04-09 12:57 | disposition home or self-care (01) | DRG 808 ==
LOC: ASU 09:04 → 2E 12:36 → SUATTDRO 12:36

== ENCOUNTER 2021-09-22 13:30 | Inpatient (IN) ==
[2021-09-22] MEDS ORDERED: ONDANSETRON INJ 2 MG/ML 2 ML VIAL ONE (13:40)
[2021-09-22] MEDS ORDERED: SODIUM CHLORIDE 0.9% 1000ML 1,000 ML IV SCH ×2 (14:30→21:28)
--- NOTE | 2021-09-22 14:32 | XRay Report ---
XR chest 1V portable CLINICAL HISTORY: covid pos, recent seizure. Evaluate cardiac border status COMPARISON STUDY: 06/07/2021 TECHNIQUE: 1 view of the chest FINDINGS: Single frontal view of the chest demonstrates the cardiomediastinal silhouette to be within normal li mits. A Port-A-Cath is in place. There is again mild asymmetric elevation of the left hemidiaphragm. The lungs are clear of alveolar opacities. There is no evidence for pleural effusion. There is no rosy dence for vascular congestion. There is no acute osseous pathology. IMPRESSION: No acute cardiopulmonary disease. ACT 112: Negative or not required by law. Electronically signed by: Deven Deras M.D. 09/22/2021 2:30 PM
[2021-09-22 14:38] LABS: Basophils # (auto) 0.02 K/uL (0-0.2); Basophils % (auto) 0.4 %; Eosinophils # (auto) 0.09 K/uL (0-0.5); Eosinophils % (auto) 1.8 %; Hematocrit (blood only) 34.3 % (37-47); Hemoglobin 12.1 g/dL (12.0-16.0); Immature Granulocytes # (auto) 0.01 K/uL (0.00-0.02); Immature Granulocytes % (auto) 0.2 %; Lymphocytes # (auto) 1.89 K/uL (1.2-3.4); Lymphocytes % (auto) 36.8 %; Mean Corpuscular Hemoglobin 34.5 pg (25-34); Mean Corpuscular Hgb Conc 35.3 g/dL (32-36); Mean Corpuscular Volume 97.7 fL (80-100); Mean Platelet Volume 9.9 fL (7.4-10.4); Monocytes # (auto) 0.49 K/uL (0.11-0.59); Monocytes % (auto) 9.5 %; Neutrophils # (auto) 2.64 K/uL (1.4-6.5); Neutrophils % (auto) 51.3 %; Platelet Count 325 K/uL (130-400); RDW Coefficient of Variation 12.1 % (11.5-14.5); RDW Standard Deviation 42.9 fL (36.4-46.3); Red Blood Count 3.51 M/uL (4.2-5.4); White Blood Count 5.14 K/uL (4.8-10.8)
[2021-09-22 14:52] LABS: Albumin Globulin Ratio 1.5 (0.9-2); Albumin Level 4.1 gm/dl (3.4-5.0); Bilirubin,Total 0.4 mg/dl (0.2-1.0); Calcium 9.3 mg/dl (8.5-10.1); Creatinine Clr Calc Pharmacy 56.8 ml/min; Est GFR (African American) 65.9 ml/min; Est GFR (Non-African American) 56.9 ml/min; Globulin 2.7 gm/dl (2.5-4.0); Magnesium 1.8 mg/dl (1.7-2.4); Potassium 4.1 mmol/L (3.5-5.1); Total Protein 6.8 gm/dl (6.0-8.3)
--- NOTE | 2021-09-22 15:13 | Emergency Department Note ---
ED Visit Note This patient was seen in concert with Dr. Zuleta and we discussed and agreed upon the history, physical, assessment and plan. See attending's note for details. Resident Activity Tracking Resident Involvement: Resident Care Provided Care Provided: Adult ED
[2021-09-22] MEDS ORDERED: OPTIRAY 320 125ml IV ONE (15:16)
--- NOTE | 2021-09-22 15:21 | Emergency Department Note ---
Impression & Plan New onset seizure, Brain metastases, Small cell lung cancer, left upper lobe, COVID-19, Hyponatremia ED Provider Note NAME: JAYLA MARCOS AGE: 60 SEX: F ARRIVES VIA: Ambulance INFORMANT: ED PROVIDER(S): Thony Zuleta MD CHIEF COMPLAINT: Witness seizure PLAN: Disposition: Admit MEDICAL DECISION MAKING: The patient is a pleasant 60 yo woman who was brought in to the emergency departmetn via EMS for witness seizure like activity. Per EMS: family witness seizure-like activity she exhibited total body convulsions for 3-5 min. She then frothed at the mouth. After the convulsions stopped she became lethargic and fell asleep with audible snoring. Of note, patient has no history of an underlying seizure disorder. However, she does have a sister with a seizure disorder. 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 Her most recent chemo infusion was 09/20/21 it was a new chemotherapeutic (one she had not been treated with in the past). She did test positive for covid 19 on 09/11/21. Patient states she does not know why she was brought into the hospital- however she does state she has been weak and was experiencing a cough. She denies fever/ chills, shortness of breath, nausea/vomiting or diarrhea. She is a former smoker, quit > 20 years ago. She denies Etoh use. She was not immunized for COVID 19. The patient is acute on chronically ill-appearing, fatigued, afebrile, with stable vital signs. O2 saturation was in the upper 80s on room air improved with nasal cannula. She appears clinically dry. She does have evidence of tongue biting with minor superficial linear abrasion and contusion to the distal aspect of her tongue. She is moving all extremities equally without focal deficits. EKG without overt acute ischemia. CXR negative for acute cardiopulmonary process. WBC within normal limits. Hemoglobin and platelets within normal limits. Chemistry without metabolic acidosis. Electrolytes and LFTs are unremarkable. Troponin negative/undetectable. UA without evidence of infection. COVID-19, RNA, NAAT test was negative. CT of the head was performed and unfortunately demonstrates new interval development of metastatic disease with the largest lesion within the right temporal lobe measuring 19 x 15 mm with surrounding cerebral edema. CTA of the chest was performed and was negative for PE. Known small cell lung cancer is appreciated with decrease in size of prior spiculated mass. Given the patient's presentation and suspicion for seizure in the setting of new metastatic brain lesions she was treated with dexamethasone as well as loaded with Keppra. Resident, Dr. Murry, viewed findings with the patient and her at the bedside. They agree with plan for admission for further management. Resident, Dr. Murry, discussed case with Nakul Turner PAC, with Dr. Mckeon [facility] hospitalist who will evaluate the patient for admission. This patient was managed with the assistance of resident, Dr. Murry. I discussed the case with the resident, examined the patient, and confirm the findings and plan as documented in this note. Triage Nursing notes reviewed and agree them. Prior medical records reviewed Vital Signs: reviewed and remarkable for hypoxia. Differential diagnosis: Epilepsy, infection, hypoglycemia, electrolyte abnormalities, cardiac sources, intracerebral event, trauma, toxicologic, neurologic, syncope, as well as other pathologies. ER treatment provided: See below. Diagnostics interpreted by me: ECG: NSR, 89 bpm, no ectopy, no overt ST elevation or depression. Cardiac Monitoring: An order for continuous cardiac monitoring was placed and demonstrated NSR, 89 bpm, no ectopy. Laboratory studies: See below Imaging studies: See below Consultation(s): Nakul Turner [facility] HPI: The patient is a pleasant 60 yo woman who was brought in to the emergency departmetn via EMS for witness seizure like activity. Per EMS: family witness seizure-like activity she exhibited total body convulsions for 3-5 min. She th en frothed at the mouth. After the convulsions stopped she became lethargic and fell asleep with audible snoring. Of note, patient has no history of an underlying seizure disorder. However, she does have a sister with a seizure disorder. Patient is currently undergoing chemotherapy for left lung cancer (small cell carcinoma, large cell neuroendocrine carcinoma). Her most recent chemo infusion was 09/20/21 it was a new chemotherapeutic (one she had not been treated with in the past). She did test positive for covid 19 on 09/11/21. Patient states she does not know why she was brought into the hospital- however she does state she has been weak and was experiencing a cough. She denie s fever/chills, shortness of breath, nausea/vomiting or diarrhea. She is a former smoker, quit > 20 years ago. She denies Etoh use. She was not immunized for COVID 19. ROS: See above HPI for pertinent positives & negatives. A total of 10 systems reviewed and were otherwise negative. PAST MEDICAL HISTORY:See Below PAST SURGICAL HISTORY:See Below FAMILY HISTORY:See Below SOCIAL HISTORY:See Below HOME MEDICATIONS:See Below ALLERGIES:See Below VITALS:See Below PHYSICAL EXAMINATION: GENERAL: Awake, alert, acute on chronically [id number], in no dis tress HENT: Normocephalic, atraumatic. Oropharynx with evidence of tongue biting with minor superficial linear abrasion and contusion to the distal aspect of her tongue. Dry MM.l EYES: Normal conjunctiva. Sclera non-icteric. EOMI. No nystamgus. PEARRL. NECK: Supple. No nuchal rigidity. FROM. No JVD. RESPIRATORY: Clear to auscultation. CARDIAC: Regular rate, normal rhythm. Extremities warm and well perfused. Pulses equal. ABDOMEN: Soft, non-distended. No tenderness to palpation. No rebound or g uarding. No masses. RECTAL: Deferred. MUSCULOSKELETAL: Chest examination reveals no tenderness. The back is symmetrical on inspection without obvious abnormality. There is no CVA tenderness to palpation. No joint edema. LOWER EXTREMITIES: Calves are equal size bilaterally and non-tender. No edema. N o discoloration. NEURO: No sensory or motor deficits noted. 5/5 strength and SILT x 4 extremities. SKIN: No rash or jaundice noted. ED COURSE: Critical Care: I have personally spent greater than 65 minutes of critical care time in the direct management of this patient. This includes bedside care, interpretation of diagnostic studies, and testing, discussion with consultants, patient, and family members, and other required patient management activities. This 65 minutes is in excess of all separately billable procedures. Thony Zuleta MD Past Med/Surg History Medical History Obesity Pancytopenia due to chemotherapy Pneumonia of left lower lobe due to infectious organism Small cell lung cancer, left upper lobe stage IIIa T2, N2, M0 Thyroid nodule Surgical History H/O thyroidectomy H/O tubal ligation H/O: hysterectomy LUCIUS BSO History of bronchoscopy x2 History of carpal tunnel surgery bilt hands History of tooth extraction all teeth Hx of colonoscopy Port-A-Cath in place (04/17/21) Insertion of Access Port Right Subclavian With Fluoroscopy Dr. Holguin 04/17/2021 S/P right rotator cuff repair Family History Mother Cancer ovarian, uterine and colon Father No problems noted. Sister Cancer Leukemia Sister Lung disease Emphysema Other No family history of adverse response to anesthesia Social History Smoking Status: Former smoker Years Smoked: 20; Second Hand Exposure: Yes; Hx Alcohol Use: No Hx Substance Use: No Preferred Language: Occitan Communication Ability: Effective Visual Impairment: No Limitations Hearing Ability: Normal Hvac Engineer Required: No Beliefs That Will Affect Care: None marital status: Current Living Situation: Spouse Current Living Situation Comment: Lives with , grandson, grandson's and great grandkids current occupational status: other current occupation: Careers Adviser How many Children do You have: 2 Other Information That Helps Us Care for You: No Feels Safe at Home: Yes Safety Concerns: Feels Safe At This Time caffeine: Yes during the past year weight has: remained stable Dental Care, Regularly: No Physical Activity Frequency: 1-2 Times per Week Assistive Devices: Denture - Upper, Denture - Lower, Glasses, Oxygen - Continuous and Walker Assistive Devices Comment: Occasional oxygen use, remains available at home. Allergies Allergies Allergy/AdvReac Type Severity Reaction Status Date / Time sulfamethoxazole Allergy Severe Severe Unverified 09/22/21 16:33 [From Bactrim] Headaches trimethoprim [From Bactrim] Allergy Severe Severe Unverified 09/22/21 16:33 Headaches Penicillins Allergy Intermediate severe Verified 09/22/21 16:33 headaches Sulfa (Sulfonamide Allergy Intermediate severe Verified 09/22/21 16:33 Antibiotics) headaches amoxicillin AdvReac Severe Yeast Unverified 09/22/21 16:33 Infection Home Meds Home Medications Medication Instructions Recorded Confirmed ibuprofen 200 mg tablet 200 mg PO Q6H PRN 03/21/21 09/22/21 levothyroxine 125 mcg capsule 125 mcg PO QAM 03/21/21 09/22/21 loratadine 10 mg tablet (Claritin) 10 mg PO HS 03/21/21 09/22/21 ondansetron 8 mg disintegrating 8 mg PO Q8H PRN 04/03/21 09/22/21 tablet multivitamin 1 tab PO QDL 04/06/21 09/22/21 lorazepam 0.5 mg tablet 0.5 mg PO BID PRN 04/24/21 09/22/21 ascorbic acid (vitamin C) 1,000 mg 1 g PO QDL 09/22/21 09/22/21 chewable tablet cyanocobalamin (vitamin B-12) 1 tab PO QDL 09/22/21 09/22/21 Results & Data (ED) Vital Signs Vital Signs - 24 hr 09/22/21 13:40 09/22/21 13:57 09/22/21 15:39 Temperature 36.3 C L Temperature Source Oral Pulse Rate 99 H Pulse Rate [Apical] 88 Pulse Rhythm Regular Pulse Strength Normal Respiratory Rate 20 28 H Respiratory Effort / Characteristics Non-Labored Spontaneous Non-Labored Respiratory Depth Normal Shallow Respiratory Pattern Regular Tachypnea Blood Pressure 142/93 H Blood Pressure [Right Arm] 133/86 Blood Pressure Mean 109 Blood Pressure Mean [Right Arm] 101 Blood Pressure Position Sitting Pulse Oximetry 88 L 95 Oxygen Delivery Method Room Air Room Air Sepsis Recent Fever Within 48 Hours No Sepsis New/Unexplained Change in Mental Status No Sepsis Action Taken by Nursing No Action Required 09/22/21 18:04 Temperature Temperature Source Pulse Rate Pulse Rate [Apical] 82 Pulse Rhythm Pulse Strength Respiratory Rate 18 Respiratory Effort / Characteristics Respiratory Depth Respiratory Pattern Blood Pressure Blood Pressure [Right Arm] 126/74 Blood Pressure Mean Blood Pressure Mean [Right Arm] 91 Blood Pressure Position Pulse Oximetry 95 Oxygen Delivery Method Room Air Sepsis Recent Fever Within 48 Hours Sepsis New/Unexplained Change in Mental Status Sepsis Action Taken by Nursing Laboratory Data Attestation: I reviewed the patient's lab results. Result diagrams: 09/22/21 12:48 09/22/21 12:48 Lab Results 09/22/21 09/22/21 09/22/21 Range/Units 12:48 12:48 12:48 WBC 5.14 (4.8-10.8) K/uL RBC 3.51 L (4.2-5.4) M/uL Hgb 12.1 (12.0-16.0) g/dL Hct 34.3 L (37-47) % MCV 97.7 (80-100) fL MCH 34.5 H (25-34) pg MCHC 35.3 (32-36) g/dL RDW Std Deviation 42.9 (36.4-46.3) fL RDW Coeff of Deanna 12.1 (11.5-14.5) % Plt Count 325 (130-400) K/uL MPV 9.9 (7.4-10.4) fL Immature Gran % (Auto) 0.2 % Neut % (Auto) 51.3 % Lymph % (Auto) 36.8 % Windham % (Auto) 9.5 % Eos % (Auto) 1.8 % Baso % (Auto) 0.4 % Neut # (Auto) 2.64 (1.4-6.5) K/uL Lymph # (Auto) 1.89 (1.2-3.4) K/uL [place]ham # (Auto) 0.49 (0.11-0.59) K/uL Eos # (Auto) 0.09 (0-0.5) K/uL Baso # (Auto) 0.02 (0-0.2) K/uL Immature Gran # (Auto) 0.01 (0.00-0.02) K/uL Sodium 130 L (136-145) mmol/L Potassium 4.1 (3.5-5.1) mmol/L Chloride 95 L (98-107) mmol/L Carbon Dioxide 25 (21-32) mmol/L Anion Gap 10 (3-11) BUN 21 (6-23) mg/dl Creatinine 1.05 (0.6-1.2) mg/dl Est Cr Clr Drug Dosing 56.8 ml/min Est GFR ( Amer) 65.9 ml/min Est GFR (Non-Af Amer) 56.9 ml/min BUN/Creatinine Ratio 20.0 (10-20) Glucose 109 H (70-99) mg/dl Calcium 9.3 (8.5-10.1) mg/dl Magnesium 1.8 (1.7-2.4) mg/dl Total Bilirubin 0.4 (0.2-1.0) mg/dl AST 16 (13-39) U/L ALT 14 (7-52) U/L Alkaline Phosphatase 61 (34-104) U/L Troponin I < 0.03 (0-0.04) ng/ml Total Protein 6.8 (6.0-8.3) gm/dl Albumin 4.1 (3.4-5.0) gm/dl Globulin 2.7 (2.5-4.0) gm/dl Albumin/Globulin Ratio 1.5 (0.9-2) Urine Color Urine Appearance (Clear) Urine pH (4.5-7.5) Ur Specific Rheems (1.000-1.030) Urine Protein (Negative) Urine Glucose (UA) (Negative) Urine Ketones (Negative) Urine Blood (Negative) Urine Nitrite (Negative) Urine Bilirubin (Negative) Urine Urobilinogen (Negative) Ur Leukocyte Esterase (Negative) Urine WBC (Auto) (0-5) /hpf Urine RBC (Auto) (0-4) /hpf U Hyaline Cast (Auto) (0-5) /lpf U Epithel Cells (Auto) (0-5) /lpf Urine Bacteria (Auto) (Negative) SARS-CoV-2, RNA, NAAT (NEGATIVE) 09/22/21 09/22/21 Range/Units 16:04 16:04 WBC (4.8-10.8) K/uL RBC (4.2-5.4) M/uL Hgb (12.0-16.0) g/dL Hct (37-47) % MCV (80-100) fL MCH (25-34) pg MCHC (32-36) g/dL RDW Std Deviation (36.4-46.3) fL RDW Coeff of Deanna (11.5-14.5) % Plt Count (130-400) K/uL MPV (7.4-10.4) fL Immature Gran % (Auto) % Neut % (Auto) % Lymph % (Auto) % Windham % (Auto) % Eos % (Auto) % Baso % (Auto) % Neut # (Auto) (1.4-6.5) K/uL Lymph # (Auto) (1.2-3.4) K/uL Windham # (Auto) (0.11-0.59) K/uL Eos # (Auto) (0-0.5) K/uL Baso # (Auto) (0-0.2) K/uL Immature Gran # (Auto) (0.00-0.02) K/uL Sodium (136-145) mmol/L Potassium (3.5-5.1) mmol/L Chloride (98-107) mmol/L Carbon Dioxide (21-32) mmol/L Anion Gap (3-11) BUN (6-23) mg/dl Creatinine (0.6-1.2) mg/dl Est Cr Clr Drug Dosing ml/min Est GFR ( Amer) ml/min Est GFR (Non-Af Amer) ml/min BUN/Creatinine Ratio (10-20) Glucose (70-99) mg/dl Calcium (8.5-10.1) mg/dl Magnesium (1.7-2.4) mg/dl Total Bilirubin (0.2-1.0) mg/dl AST (13-39) U/L ALT (7-52) U/L Alkaline Phosphatase (34-104) U/L Troponin I (0-0.04) ng/ml Total Protein (6.0-8.3) gm/dl Albumin (3.4-5.0) gm/dl Globulin (2.5-4.0) gm/dl Albumin/Globulin Ratio (0.9-2) Urine Color Yellow Urine Appearance Clear (Clear) Urine pH 6.5 (4.5-7.5) Ur Specific Rheems 1.025 (1.000-1.030) Urine Protein Negative (Negative) Urine Glucose (UA) Negative (Negative) Urine Ketones Negative (Negative) Urine Blood Negative (Negative) Urine Nitrite Negative (Negative) Urine Bilirubin Negative (Negative) Urine Urobilinogen Negative (Negative) Ur Leukocyte Esterase Trace H (Negative) Urine WBC (Auto) 1-5 (0-5) /hpf Urine RBC (Auto) 0-4 (0-4) /hpf U Hyaline Cast (Auto) 1-5 (0-5) /lpf U Epithel Cells (Auto) >30 H (0-5) /lpf Urine Bacteria (Auto) Negative (Negative) SARS-CoV-2, RNA, NAAT NEGATIVE (NEGATIVE) Administered Medications Sodium Chloride (Nss 1000ml) 1,000 mls @ 100 mls/hr IV .Q10H KEVIN Stop: 09/23/21 07:27 Last Admin: 09/22/21 21:55 Dose: 100 mls/hr Documented by: [id number] Dexamethasone 4 mg/ Syringe 1 mls @ 1 mls/min IV Q8H KEVIN Stop: 10/22/21 21:59 Last Admin: 09/22/21 21:55 Dose: 1 mls/min Documented by: [id number] Loratadine (Loratadine 10 Mg Tab) 10 mg PO HS KEVIN Stop: 10/22/21 21:27 Last Admin: 09/22/21 21:54 Dose: 10 mg Documented by: [id number] Oxycodone HCl (Oxycodone Hcl Ir 5 Mg Tab (Immediate Release)) 5 mg PO Q4H PRN PRN Reason: Pain Stop: 10/06/21 19:23 Last Admin: 09/22/21 19:40 Dose: 5 mg Documented by: [id number] Discontinued Medications Dexamethasone (Dexamethasone Sod Inj 4 Mg/Ml Vial) 10 mg IV NOW STA Stop: 09/22/21 15:38 Last Admin: 09/22/21 16:02 Dose: 10 mg Documented by: [id number] Sodium Chloride (Nss 1000ml) 1,000 mls @ 125 mls/hr IV .Q8H KEVIN Stop: 09/22/21 22:29 Last Infusion: 09/22/21 22:30 Dose: 0 mls/hr Documented by: [id number] Admin: 09/22/21 16:01 Dose: 125 mls/hr Documented by: [id number] Levetiracetam 1,500 mg/ (Dextrose) 115 mls @ 440 mls/hr IV NOW ONE Stop: 09/22/21 16:30 Last Infusion: 09/22/21 16:39 Dose: 0 mls/hr Documented by: [id number] Admin: 09/22/21 16:16 Dose: 440 mls/hr Documented by: [id number] Ioversol (Optiray 320 125ml) 96 ml IV ONCE ONE Stop: 09/22/21 15:17 Last Admin: 09/22/21 15:17 Dose: 96 ml Documented by: [id number] Ondansetron HCl (Ondansetron Inj 2 Mg/Ml 2 Ml Vial) Confirm Administered Dose 4 mg .ROUTE .STK-MED ONE Stop: 09/22/21 13:41 Last Admin: 09/22/21 15:42 Dose: Not Given Documented by: [id number] Imaging Data Radiologist's Impression: Chest X-Ray 09/22/21 14:09 XR chest 1V portable CLINICAL HISTORY: covid pos, recent seizure. Evaluate cardiac border status COMPARISON STUDY: 06/07/2021 TECHNIQUE: 1 view of the chest FINDINGS: Single frontal view of the chest demonstrates the cardiomediastinal silhouette to be within normal limits. A Port-A-Cath is in place. There is again mild a symmetric elevation of the left hemidiaphragm. The lungs are clear of alveolar opacities. There is no evidence for pleural effusion. There is no evidence for vascular congestion. There is no acute osseous pathology. IMPRESSION: No acute cardiopulmonary disease. ACT 112: Negative or not required by law. Electronically signed by: Deven Deras M.D. 09/22/2021 2:[address] 09/22/21 14:15 CT head/brain wo con CLINICAL HISTORY: new onset seizure COMPARISON STUDY: 04/06/2021 CT DOSE: TECHNIQUE: Standard CT of the Brain was performed without IV contrast. A dose lowering technique was utilized adhering to the principles of ALARA. FINDINGS: Compared to the previous examination, there has been interval development of numerous increased attenuation lesions within the brain represe nting the presence of diffuse metastatic disease. The largest lesion is within the right temporal lobe measuring approximately 19 x 15 mm. Surrounding cerebral edema is present. Extraaxial space: There is no evidence for subdural hematoma. There are no extra-axial fluid collections. Ventricles and cisterns: The ventricles are normal in size and configuration. There is no evidence for midline shift or mass effect. Parenchyma: There is no subarachnoid or intraparenchymal hemorrhage. There is no evidence for an acute infarct or cerebral edema. There is homogeneous attenuation of the brain parenchyma. Osseous structures: There is no evidence for an acute fracture. The visualized paranasal sinuses are clear. The mastoid air cells are clear bilaterally. Soft tissues: There is no evidence for focal soft tissue swelling. IMPRESSION: Interval development of numerous increased attenuation lesions throughout the brain characteristic of metastatic brain disease. ACT 112: Negative or not required by law. Electronically signed by: Deven Deras M.D. 09/22/2021 3:27 PM Chest CTA 09/22/21 14:53 CT ANGIOGRAM OF THE CHEST CLINICAL HISTORY: Covid. Seizure. Lung cancer. COMPARISON STUDY: Chest x-ray dated 09/22/2021. Chest CT scans dated 08/25/2021 and 03/28/2021 TECHNIQUE: Following the IV administration of 96 cc of Optiray 320, CT angiogram of the chest was performed from the upper abdomen to the thoracic inlet utilizing the pulmonary embolus protocol. Images are reviewed in the axial, sagittal, and coronal planes. 3-D MIPS images are created and assessed. IV contrast was administered without complication. A dose lowering technique was utilized adhering to the principles of ALARA. The examination is degraded by motion artifact, as well as streak artifact from the arms which could not be elevated above the chest. CT DOSE: 1275.47 mGy.cm FINDINGS: Thyroid: Atrophic versus surgically absent. Thoracic aorta: There is mild atherosclerotic calcification of the thoracic aorta, which is normal in caliber and demonstrates standard 3-vessel arch anatomy. No dissection is seen. Pulmonary vasculature: The pulmonary trunk is normal in caliber. There are no filling defects identified in main, lobar, or segmental pulmonary branches to suggest pulmonary embolus. Heart: A right internal jugular central venous infusion port is in place. The h eart is mildly enlarged noting a small pericardial effusion. Lungs and pleural spaces: Emphysematous change is noted. A spiculated mass at the left apex is similar in appearance to the 08/25/2021 examination, measuring 3.1 x 1.7 cm in axial dimension. Segmental atelectasis is present at the left lung base and in the lingula. There is no airspace consolidation typical for pneumonia or pleural effusion. A 1.0 cm groundglass lesion in the right lower lobe on image #143 is also unchanged. Foci of parenchymal scarring are seen throughout both lungs. The trachea appears clear. Fluid/debris fills the left upper and left lower lobe airways. Mediastinum: Prevascular soft tissue thickening persists. No discrete mediastinal mass lesion is identified. No adenopathy is seen. Sarah: Falls of the left hilum is unchanged. No right hilar adenopathy is seen. Axillae: There is no axillary lymphadenopathy. Upper abdomen: There is a 1.5 cm cyst in the left lobe of the liver. Partially visualized upper abdominal viscera is otherwise grossly unremarkable. Skeletal structures: The skeletal structures are osteopenic. Mild degenerative change is seen throughout the thoracic spine. No lytic or blastic bony lesions are seen. IMPRESSION: 1. Streak and motion degraded examination. 2. There is no evidence of pulmonary embolus in the main, lobar, or segmental pulmonary arteries. 3. Cardiomegaly and emphysema. 4. A 3.1 cm spiculated mass lesion is again seen at the left apex. This is not significantly changed from 08/25/2021 but has significantly decreased in size from 03/28/2021. The large prevascular mass lesion seen on 03/28/2021 has almost completely resolved. 5. A 1.0 cm groundglass lesion in the right lower lobe is unchanged and remains suspicious for a low-grade adenocarcinoma. 6. There is no airspace consolidation typical for pneumonia or pleural effusion. 7. Fluid/debris is seen within the left upper and left lower lobe airways. Correlate clinically for evidence of aspiration. 8. Additional findings as above. ACT 112: Negative or not required by law. Electronically signed by: Jr Nugent M.D. 09/22/2021 3:44 PM Discharge Plan Visit Data Chief Complaint: Seizure Stated Complaint: SEIZURE ED Provider: Thony Zuleta ED Midlevel Provider: Janet Murry Discharge Problem: New onset seizure, Brain metastases, Small cell lung cancer, left upper lobe, COVID-19, Hyponatremia Patient Disposition: Admitted As Inpatient Discharge Instructions Interventions: ED Discharge Assessment Last Done: 09/22/21 21:15
--- NOTE | 2021-09-22 15:28 | CT Scan Report ---
CT head/brain wo con CLINICAL HISTORY: new onset seizure COMPARISON STUDY: 04/06/2021 CT DOSE: TECHNIQUE: Standard CT of the Brain was performed without IV contrast. A dose lowering technique was utilized adhering to the principles of ALARA. FINDINGS: Compared to the previous examination, there has been interval development of numerous incre ased attenuation lesions within the brain representing the presence of diffuse metastatic disease. Th e largest lesion is within the right temporal lobe measuring approximately 19 x 15 mm. Surrounding ce rebral edema is present. Extraaxial space: There is no evidence for subdural hematoma. There are no extra-axial fluid collecti ons. Ventricles and cisterns: The ventricles are normal in size and configuration. There is no evidence f or midline shift or mass effect. Parenchyma: There is no subarachnoid or intraparenchymal hemorrhage. There is no evidence for an acu te infarct or cerebral edema. There is homogeneous attenuation of the brain parenchyma. Osseous structures: There is no evidence for an acute fracture. The visualized paranasal sinuses are clear. The mastoid air cells are clear bilaterally. Soft tissues: There is no evidence for focal soft tissue swelling. IMPRESSION: Interval development of numerous increased attenuation lesions throughout the brain tyler cteristic of metastatic brain disease. ACT 112: Negative or not required by law. Electronically signed by: Deven Deras M.D. 09/22/2021 3:27 PM
[2021-09-22] MEDS ORDERED: LEVETIRACETAM IV STA (15:36)
[2021-09-22] MEDS ORDERED: SODIUM CHLORIDE 0.9% IV STA (15:36)
[2021-09-22] MEDS ORDERED: DEXAMETHASONE SOD INJ 4 MG/ML VIAL IV STA (15:37)
--- NOTE | 2021-09-22 15:45 | CT Scan Report ---
CT ANGIOGRAM OF THE CHEST CLINICAL HISTORY: Covid. Seizure. Lung cancer. COMPARISON STUDY: Chest x-ray dated 09/22/2021. Chest CT scans dated 08/25/2021 and 03/28/2021 TECHNIQUE: Following the IV administration of 96 cc of Optiray 320, CT angiogram of the chest was per formed from the upper abdomen to the thoracic inlet utilizing the pulmonary embolus protocol. Images are reviewed in the axial, sagittal, and coronal planes. 3-D MIPS images are created and assessed. IV contrast was administered without complication. A dose lowering technique was utilized adhering to the principles of ALARA. The examination is degraded by motion artifact, as well as streak artifact f rom the arms which could not be elevated above the chest. CT DOSE: 1275.47 mGy.cm FINDINGS: Thyroid: Atrophic versus surgically absent. Thoracic aorta: There is mild atherosclerotic calcification of the thoracic aorta, which is normal in caliber and demonstrates standard 3-vessel arch anatomy. No dissection is seen. Pulmonary vasculature: The pulmonary trunk is normal in caliber. There are no filling defects identif ied in main, lobar, or segmental pulmonary branches to suggest pulmonary embolus. Heart: A right internal jugular central venous infusion port is in place. The heart is mildly enlarge d noting a small pericardial effusion. Lungs and pleural spaces: Emphysematous change is noted. A spiculated mass at the left apex is simila r in appearance to the 08/25/2021 examination, measuring 3.1 x 1.7 cm in axial dimension. Segmental a telectasis is present at the left lung base and in the lingula. There is no airspace consolidation ty pical for pneumonia or pleural effusion. A 1.0 cm groundglass lesion in the right lower lobe on image #143 is also unchanged. Foci of parenchymal scarring are seen throughout both lungs. The trachea uday ears clear. Fluid/debris fills the left upper and left lower lobe airways. Mediastinum: Prevascular soft tissue thickening persists. No discrete mediastinal mass lesion is iden tified. No adenopathy is seen. Sarah: Falls of the left hilum is unchanged. No right hilar adenopathy is seen. Axillae: There is no axillary lymphadenopathy. Upper abdomen: There is a 1.5 cm cyst in the left lobe of the liver. Partially visualized upper abdom inal viscera is otherwise grossly unremarkable. Skeletal structures: The skeletal structures are osteopenic. Mild degenerative change is seen through out the thoracic spine. No lytic or blastic bony lesions are seen. IMPRESSION: 1. Streak and motion degraded examination. 2. There is no evidence of pulmonary embolus in the main, lobar, or segmental pulmonary arteries. 3. Cardiomegaly and emphysema. 4. A 3.1 cm spiculated mass lesion is again seen at the left apex. This is not significantly changed from 08/25/2021 but has significantly decreased in size from 03/28/2021. The large prevascular mass le pelon seen on 03/28/2021 has almost completely resolved. 5. A 1.0 cm groundglass lesion in the right lower lobe is unchanged and remains suspicious for a low- grade adenocarcinoma. 6. There is no airspace consolidation typical for pneumonia or pleural effusion. 7. Fluid/debris is seen within the left upper and left lower lobe airways. Correlate clinically for e vidence of aspiration. 8. Additional findings as above. ACT 112: Negative or not required by law. Electronically signed by: Jr Nugent M.D. 09/22/2021 3:44 PM
[2021-09-22] MEDS ORDERED: levETIRAcetam 1,500 MG in DEXTROSE 5% 100 ML IV ONE (16:15)
[2021-09-22 16:16] LABS: Appearance Urine Clear (Clear); Bacteria Urine Automated Negative (Negative); Bilirubin Urine Negative (Negative); Blood Urine Negative (Negative); Color Urine Yellow; Epithelial Cell Urine Auto >30 /lpf (0-5); Glucose Urine UA Negative (Negative); Ketones Urine Negative (Negative); Leukocyte Esterase Urine Trace (Negative); Nitrite Urine Negative (Negative); Protein Urine Negative (Negative); RBC Urine Automated 0-4 /hpf (0-4); Specific Gravity Urine 1.025 (1.000-1.030); Urobilinogen Urine Negative (Negative); pH Urine 6.5 (4.5-7.5)
[2021-09-22] MEDS: oxyCODONE HCL IR 5 MG TAB (IMMEDIATE RELEASE) PO PRN (19:40)
--- NOTE | 2021-09-22 20:21 | Electrocardiogram Report ---
Test Reason : Blood Pressure : / mmHG Vent. Rate : 089 BPM Atrial Rate : 089 BPM P-R Int : 134 ms QRS Dur : 084 ms QT Int : 362 ms P-R-T Axes : 054 026 035 degrees QTc Int : 440 ms Normal sinus rhythm Normal ECG When compared with ECG of 07-JUN-2021 16:12, No significant change was found Confirmed by Wallace Kelly ([id number]) on 09/22/2021 8:21:06 PM Referred By: Confirmed By:Wallace Kelly
[2021-09-22] MEDS ORDERED: levETIRAcetam 1,000 MG in 0.9 % SODIUM CHLORIDE 100 ML IV SCH (21:00)
[2021-09-22] MEDS ORDERED: ONDANSETRON INJ 2 MG/ML 2 ML VIAL IV PRN (21:28)
[2021-09-22] MEDS ORDERED: ACETAMINOPHEN 325 MG TAB PO PRN (21:28)
[2021-09-22] MEDS ORDERED: LORazepam 0.5 MG TAB PO PRN (21:28)
[2021-09-22] MEDS ORDERED: NITROGLYCERIN SL 0.4 MG/TAB TAB SL PRN (21:28)
[2021-09-22] MEDS ORDERED: LORazepam 1.5 MG/3 ML VIAL IV PRN (21:28)
[2021-09-22] MEDS ORDERED: ONDANSETRON 8 MG PO PRN (21:37)
[2021-09-22] MEDS: LORATADINE 10 MG TAB PO SCH (21:54)
[2021-09-22] MEDS: dexAMETHasone 4 MG in SYRINGE 0 ML IV SCH (21:55)
--- NOTE | 2021-09-22 22:41 | History and Physical Report ---
DATE OF ADMISSION: 09/22/2021. CHIEF COMPLAINT: Seizures. 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 As per , at noon time, the patient was noted to become shaking all over her body, bit her tongue, no incontinence. It lasted for 5 minutes. After that, she was confused. She was almost confused until she came to the ER. Currently, alert and oriented. In the ER, imaging studies showed numerous brain mets, the largest being 19 x 15 mm in the right temporal lobe and also no evidence of midline shift or mass effect. The ER physician loaded with Keppra and gave a dose of Decadron. Currently, the patient denies any headache, was having a headache earlier. No blurred visions, no runny nose, no sore throat, no cough, no chest pain, denies any shortness of breath, no nausea, no abdominal pain. She is somewhat constipated. Normal bladder movements. Ambulates okay. No swelling in the legs. Appetite is not that great. Currently hemodynamically stable. The patient says she is not COVID vaccinated. She had COVID in May. Again, she had COVID symptoms and she was diagnosed again with COVID on 09/11/2021, prior to that she had symptoms for 4-5 days. Currently rapid test is negative here in the ER. Currently, resting comfortably. ALLERGIES: BACTRIM, PENICILLINS, AMOXICILLIN. PAST MEDICAL HISTORY: As mentioned above. PAST SURGICAL HISTORY: Rotator cuff shoulder arthroscopy, bronchoscopy with EBUS, carpal tunnel surgery, colonoscopy, ligation of oviducts, thyroidectomy, total hysterectomy. MEDICATIONS: The patient is on ibuprofen 200 mg p.o. q. 6 hours p.r.n., levothyroxine 125 mcg p.o. daily, loratadine 10 mg p.o. at bedtime, Ativan 0.5 mg p.o. b.i.d. p.r.n., multivitamins 1 tablet p.o. daily, Zofran 8 mg p.o. q. 8 hours p.r.n., vitamin C one gram p.o. daily, vitamin B12 one tablet daily. FAMILY HISTORY: Significant for sister has COPD, seizures; father has sepsis; mother has colon cancer, uterine cancer. SOCIAL HISTORY: . Quit smoking in 2000. Smoked half pack a day for 25 years. No alcohol use. No drug use. REVIEW OF SYSTEMS: As per HPI. Rest of the review of systems is negative. PHYSICAL EXAMINATION: GENERAL: The patient is of moderate build, not in acute distress. VITAL SIGNS: Temperature 36.3, pulse 82, respiratory rate 18, blood pressure 126/74, oxygen 95% on room air. HEENT: Pupils equal, round, and reactive to light. Oral mucosa moist. NECK: No JVD, no neck masses. CARDIOVASCULAR: S1 and S2 heard. Regular rate and rhythm. No murmur, no gallop. RESPIRATORY SYSTEM: Normal AP diameter. No accessory muscle use. No wheezing, no crackles. ABDOMEN: Soft, bowel sounds present, nontender, no distention. CENTRAL NERVOUS SYSTEM: Cranial nerves II-XII grossly intact, nonfocal. EXTREMITIES: No edema, no erythema. LABORATORY DATA: WBC 5.1, hemoglobin 12.1, hematocrit 34.3, platelets 325. Sodium 130, potassium 4.1, chloride 95, bicarbonate 25, BUN 21, creatinine 1.05. Serum glucose 109, calcium 9.3, magnesium 1.8, total bilirubin 0.4, AST 16, ALT 14, alkaline phosphatase 61. Troponin I less than 0.03. Urinalysis: Trace leukocyte esterase, urine bacteria negative. Rapid COVID test negative. IMAGING DATA: CT of the chest, no PE. A 3.1 cm spiculated mass lesion seen in the left apex, not significantly changed from 08/25/2021, but significantly decreased in size from 03/28/2021. Large perivascular mass lesion seen on 03/28/2021 has almost completely resolved. A 1 cm ground glass lesion in the right lower lobe is unchanged and remains suspicious for low-grade adenocarcinoma. No airspace consolidations. Typical for pneumonia or pleural effusion. Fluid debris is seen in the left upper and left lower lobe airways. Correlate clinically for evidence of aspiration. CT of the head, interval development of numerous attenuated lesions throughout the brain characteristic of metastatic disease. Chest x-ray, no acute cardiopulmonary disease. EKG: Normal sinus rhythm at a rate of 89, no significant change was found. ASSESSMENT AND PLAN: This is a 60-year-old female who presents with seizure. 1. Seizures: The patient has a left neuroendocrine tumor of the lung, currently getting chemo. CT scan is showing multiple brain mets, possible cause of her seizures. Received 10 mg of IV Decadron and 1500 mg of IV Keppra. Consulted and notified radiation oncology and neurology .Consulted hem/onc in the a.m. To continue Decadron 4 mg IV t.i.d. and also continue Keppra for now iv 1000 mg b.i.d. Closely monitor in the tele floor. IV Ativan p.r.n. for breakthrough seizures. Radiation oncology wanted to evaluate the patient on Saturday to determine if the patient requires any stereotactic radiation. If anything urgently needed, advised to call them over the weekend or try to text them over the weekend. Talked to Dr. Baeza, radiation oncologist.And aslo recommended for MRI brain with contrast. 2. Hyponatremia: Seems to be chronic. Getting gentle fluids, for 1 liter of fluids. Follow the repeat labs and also follow the urine osmolality, urine sodium and serum osmolality. If any concern, can consult nephrology in the a.m. 3. Metastatic lung cancer: Consult hem/onc. Management as per hem/onc. 4. Hypothyroidism: Continue Synthroid. 5. Deep venous thrombosis prophylaxis: Placed sequential compression devices for now. Will place on Lovenox. 6. Recent diagnosis of COVID: Placed on isolation precautions. If COVID test comes back negative, may be we can remove the isolation precautions. Currently, the patient is asymptomatic. The patient was last diagnosed on 09/11/2021. She says she had symptoms 3-4 days prior to that. 7. Deep venous thrombosis prophylaxis: Lovenox. DISPOSITION: Closely monitor in the tele floor. Level 1 full code. Job ID: [id number] [facility]
[2021-09-23] MEDS: oxyCODONE HCL IR 5 MG TAB (IMMEDIATE RELEASE) PO PRN ×2 (00:58→15:09)
[2021-09-23 01:29] LABS: Appearance Urine Clear (Clear); Bilirubin Urine Negative (Negative); Blood Urine Negative (Negative); Color Urine Yellow; Glucose Urine UA Negative (Negative); Ketones Urine Negative (Negative); Leukocyte Esterase Urine Negative (Negative); Nitrite Urine Negative (Negative); Protein Urine Negative (Negative); Specific Gravity Urine 1.023 (1.000-1.030); Urobilinogen Urine Negative (Negative); pH Urine 5.5 (4.5-7.5)
[2021-09-23] MEDS: dexAMETHasone 4 MG in SYRINGE 0 ML IV SCH ×2 (06:23→16:29)
[2021-09-23] MEDS: LEVOTHYROXINE SODIUM 125 MCG TABLET PO SCH (06:23)
[2021-09-23 08:51] LABS: Hemoglobin 11.5 g/dL (12.0-16.0); Immature Granulocytes # (auto) 0.01 K/uL (0.00-0.02); Immature Granulocytes % (auto) 0.2 %; Lymphocytes % (auto) 7.5 %; Mean Corpuscular Hemoglobin 34.2 pg (25-34); Mean Corpuscular Hgb Conc 34.8 g/dL (32-36); Mean Corpuscular Volume 98.2 fL (80-100); Mean Platelet Volume 9.3 fL (7.4-10.4); Monocytes # (auto) 0.02 K/uL (0.11-0.59); Monocytes % (auto) 0.4 %; Neutrophils # (auto) 4.91 K/uL (1.4-6.5); Neutrophils % (auto) 91.9 %; Platelet Count 247 K/uL (130-400); RDW Coefficient of Variation 11.9 % (11.5-14.5); RDW Standard Deviation 42.1 fL (36.4-46.3); Red Blood Count 3.36 M/uL (4.2-5.4); White Blood Count 5.34 K/uL (4.8-10.8)
[2021-09-23] MEDS ORDERED: ENOXAPARIN INJ 40 MG/0.4 ML SYR SQ SCH (09:00)
[2021-09-23 09:14] LABS: BUN Creatinine Ratio 24.1 (10-20); Calcium 9.1 mg/dl (8.5-10.1); Creatinine Clr Calc Pharmacy 71.4 ml/min; Est GFR (African American) 87.6 ml/min; Est GFR (Non-African American) 75.6 ml/min; Magnesium 1.7 mg/dl (1.7-2.4); Potassium 4.7 mmol/L (3.5-5.1)
[2021-09-23] MEDS ORDERED: ASCORBIC ACID 500 MG TAB PO SCH (11:30)
[2021-09-23] MEDS ORDERED: MULTIVITAMIN TAB PO SCH (11:30)
[2021-09-23] MEDS ORDERED: NON-FORMULARY MEDICATION (Cyanocobalamin (Vitamin B-12) Tablet,Chewable) PO SCH (11:30)
[2021-09-23] MEDS ORDERED: SODIUM CHLORIDE 0.65% NA SOLN 45 ML (OCEAN) ONE (12:33)
[2021-09-23] MEDS ORDERED: SODIUM CHLORIDE 0.65% NA SOLN 45 ML (OCEAN) NAE PRN (13:00)
--- NOTE | 2021-09-23 13:49 | Consultation Report ---
DATE OF NOTE: 09/23/2021. REASON FOR CONSULTATION: Seizure. HISTORY OF PRESENT ILLNESS: The patient is a 60-year-old right-handed female with small cell carcinoma of the lung, status post chemoradiation undergoing chemo, this being her second round, hypothyroidism, history of pancytopenia secondary to chemotherapy, hyponatremia, chronic rhinitis, history of remote tobacco abuse, was brought in because of seizure. As per the at noontime, the patient was noted to be shaking bilaterally, bit her tongue and was not incontinent. By report, the seizure lasted 5 minutes, thereafter, she was confused. She does not remember waking up until she was in the ambulance. The patient indicates that she received chemotherapy on Saturday and has felt well, has been eating and drinking. None of her medicines are new other than an [id number] allergy medicine with a decongestant, which she last took one day prior to admission. On the day of admission, she felt well and does not have any recollection of the event. Thereafter, she has a minor headache, which is resolved and no change in vision, double vision, nausea, vomiting, new weakness or new numbness. She denies any prior history of seizure or syncope. The patient had COVID in May and again tested positive 09/11/2021, although tested negative on PCR on this admission. Her CT of the head showed multiple hyperdensities consistent with hemorrhagic metastasis to the brain. MRI of the brain has not yet been performed. In the Emergency Room, the patient was loaded with Keppra and is continued on 1000 mg twice a day. Radiation therapy was consulted and advised on the dose of Decadron. Diagnostic testing was notable for a white count of 5.14, H and H of 12.1 and 34.3, platelet count 325. Serum sodium was 130. Glucose on admission 109, calcium 9.3, magnesium 1.8. Transaminases normal. Urinalysis notable for trace leukocyte esterase and greater than [address] of the head as above. Chest x-ray showing no acute cardiopulmonary disease. CTA of the chest showing cardiomegaly and emphysema 3.1 cm spiculated mass at the left apex, not changed significantly from 08/25/2021, but has significantly decreased in size from 03/28/2021. Ground-glass appearance 1 cm lesion, right lower lobe, debris is noted in the left upper and left lower lobe airways. The patient's EKG, normal sinus rhythm. Vitals on admission 36.3, pulse 88, respirations 28, blood pressure 133/86, O2 2.5 liters. PAST MEDICAL HISTORY: As above. PAST SURGICAL HISTORY: Rotator cuff arthroscopy, bronchoscopy, carpal tunnel surgery, colonoscopy, tubal ligation, thyroidectomy, total hysterectomy. HOME MEDICINES: Are ibuprofen, levothyroxine, loratadine, Ativan, multiple vitamins, Zofran, vitamin C, vitamin B12. The patient denies any medication withdrawal. FAMILY HISTORY: Sister has COPD and seizures. Father sepsis. Mother, colon cancer, uterine cancer. The patient is . Stopped smoking in 2000 and no alcohol use. REVIEW OF SYSTEMS: As per HPI. PHYSICAL EXAMINATION: VITAL SIGNS: Current vitals 142/71, 113, respiration 18, temp 36.6, O2 sat is 94% on room air. GENERAL: Patient is awake and alert and oriented x3, no right/left confusion or aphasia is noted. NEUROLOGIC: Her head is normocephalic, atraumatic. There is evidence of a tongue laceration. Her pupils are equal, round and reactive to light. I could visualize the left optic nerve, which grossly appeared normal. I did not appreciate papilledema. There is normal platt, motility, facial sensation and facial symmetry. Speech and language are normal. Motor is 5/5, no drift. Normal rapid alternating movements. Symmetric reflexes, downgoing toes. Wvchca-[id number] and mofp-rp-werf are normal. Sensation is intact to light touch. Reflexes symmetric. Toes downgoing. IMPRESSION AND PLAN: Multiple hemorrhagic brain metastasis and secondary new onset seizure. MRI of the brain with and without contrast to confirm. No convincing evidence of an encephalitis or meningitis. The patient appears asymptomatic other than the aforementioned seizure. Agree with Keppra 1000 mg b.i.d., Decadron dosing per radiation therapy, consultation with radiation therapy regarding next step of therapy. Typically speaking Oncology and Radiation Oncology typically feel comfortable treating patients on anticonvulsants without ongoing Neurology consultation. If the oncologist did not feel comfortable doing so, she can be referred to our office after discharge. I would recommend checking a Keppra level 7 days after beginning at 1000 mg b.i.d. The patient and myself spoke about potential side effects for Keppra. The level should be checked probably every 3 or so months or if the patient has a seizure. The patient is not driving, but was notified that she may not drive for 6 months. We will sign off. Job ID: [id number] [facility]
--- NOTE | 2021-09-23 14:00 | Hospitalist Progress Note ---
Date of Service September 23, 2021 Assessment & Plan (1) New onset seizure: Plan: 2/2 brain mets and new right temporal lobe lesion (2) Brain metastases: Plan: numerous hemorrhagic metastases present. Radiation oncology is aware of patient who is to followup with them early this next week. Will convert her to oral steorids and oral Keppra and ensure she is fine overnight. (3) Small cell lung cancer, left upper lobe: Plan: Spiculated mass still present on chest imaging. Currently under the care of Dr. Stiles , oncologist. Oxycodone PRN pain. (4) COVID-19: Plan: Recent re-exposure to covid-19 positive son around the first of the year and had a cough and respiratory symptoms, likely representing reinfection. Treating this as a reinfection as she had a bout of covid last year, also. Cont covid isolation. (5) DVT prophylaxis: Plan: SCDs/ Lovenox contraindicated in setting of hemorrhagic mets to brain Full Code Dispo-likely to home tomorrow as long as no further seizure episodes, Oncology is ok with this plan and she continues to remain without focal neurologic deficits. Flori Maria DO [facility] Hospitalist Admission and Anticipated Discharge Date Admission Date: September 22, 2021 Subjective 60 yo F with seizures 2/2 brain mets Feeling well today denies headache or visual changes on steroids and Keppra with no further seizures overnight Denies pain or SOB MRI pending Review of Systems Review of Systems: all systems were reviewed and negative except as indicated above. Physical Exam Physical Exam: CONSTITUTIONAL: WNWD, vitals as above, generally well- appearing, NAD EYES: normal conjunctivae, no scleral icterus ENT: external ear and nose normal, MMM NECK: trachea midline RESPIRATORY: clear to auscultation bilaterally, no crackles, rales or wheezes, normal respiratory effort CARDIOVASCULAR: regular rate and rhythm, S1 and 2 heard without murmurs, gallops or rubs, no JVD, no peripheral edema GASTROINTESTINAL: soft, nontender, ND, no guarding MUSCULOSKELETAL: strength 5/5 throughout, head is normocephalic and atraumatic, SKIN: warm and dry NEUROLOGIC: CN 2-12 grossly intact, no sensory deficit, normal cognition, normal speech, no tremor, no gross focal deficits. PSYCHIATRIC: alert cooperative and oriented to person, place and time. Results & Data Results & Data ([facility]) Vital Signs (Past 12 Hours) Vital Signs Temp Pulse Pulse Resp BP Pulse Ox 09/23/21 11:19 36.6 C 113 H 18 142/71 H 94 09/23/21 07:50 86 09/23/21 05:01 37.2 C 109 H 26 H 124/80 94 Laboratory Results Short CBC 09/22/21 09/23/21 Range/Units 12:48 08:14 WBC 5.14 5.34 (4.8-10.8) K/uL Hgb 12.1 11.5 L (12.0-16.0) g/dL Hct 34.3 L 33.0 L (37-47) % Plt Count 325 247 (130-400) K/uL BMP 09/22/21 09/23/21 12:48 08:14 Sodium 130 L 133 L Potassium 4.1 4.7 Chloride 95 L 99 Carbon Dioxide 25 27 BUN 21 20 Creatinine 1.05 0.83 Glucose 109 H 156 H Calcium 9.3 9.1 Cardiac Enzymes 09/22/21 Range/Units 12:48 Troponin I < 0.03 (0-0.04) ng/ml Liver Function 09/22/21 Range/Units 12:48 Total Bilirubin 0.4 (0.2-1.0) mg/dl AST 16 (13-39) U/L ALT 14 (7-52) U/L Alkaline Phosphatase 61 (34-104) U/L Albumin 4.1 (3.4-5.0) gm/dl Urine 09/22/21 09/23/21 Range/Units 16:04 Unknown Urine Color Yellow Yellow Urine Appearance Clear Clear (Clear) Urine pH 6.5 5.5 (4.5-7.5) Ur Specific [place] 1.025 1.023 (1.000-1.030) Urine Protein Negative Negative (Negative) Urine Glucose (UA) Negative Negative (Negative) Medications Administered Current Inpatient Medications Acetaminophen (Acetaminophen 325 Mg Tab) 650 mg PO Q4H PRN PRN Reason: Pain or Fever Stop: 10/22/21 21:27 Ascorbic Acid (Ascorbic Acid 500 Mg Tab) 1,000 mg PO QDL KEVIN Stop: 10/23/21 11:29 Last Admin: 09/23/21 12:40 Dose: 1,000 mg Documented by: Enoxaparin Sodium (Enoxaparin Inj 40 Mg/0.4 Ml Syr) 40 mg SQ QAM [facility] Stop: 10/23/21 08:59 Last Admin: 09/23/21 08:06 Dose: 40 mg Documented by: Levetiracetam 1,000 mg/ (Dextrose) 110 mls @ 440 mls/hr IV Q12@0600,1800 [facility] Stop: 10/23/21 05:59 Last Infusion: 09/23/21 06:40 Dose: Infused Documented by: Dexamethasone 4 mg/ Syringe 1 mls @ 1 mls/min IV Q8H [facility] Stop: 10/22/21 21:59 Last Admin: 09/23/21 06:23 Dose: 1 mls/min Documented by: Lorazepam (Ativan) 1.5 mg in 3 mls @ 3 mls/min IV Q4H PRN PRN Reason: Breakthrough Seizures Stop: 10/22/21 21:27 Levothyroxine Sodium (Levothyroxine Sodium 125 Mcg Tablet) 125 mcg PO DAILYBB [facility] Stop: 10/23/21 06:29 Last Admin: 09/23/21 06:23 Dose: 125 mcg Documented by: Loratadine (Loratadine 10 Mg Tab) 10 mg PO HS [facility] Stop: 10/22/21 21:27 Last Admin: 09/22/21 21:54 Dose: 10 mg Documented by: Lorazepam (Lorazepam 0.5 Mg Tab) 0.5 mg PO BID PRN PRN Reason: Anxiety Stop: 10/22/21 21:27 Multivitamins (Multivitamin Tab) 1 tab PO QDL [facility] Stop: 10/23/21 11:29 Last Admin: 09/23/21 12:41 Dose: 1 tab Documented by: Nitroglycerin (Nitroglycerin Sl 0.4 Mg/Tab Tab) 0.4 mg SL UD PRN PRN Reason: Chest Pain Stop: 10/22/21 21:27 Ondansetron HCl (Ondansetron Inj 2 Mg/Ml 2 Ml Vial) 4 mg IV Q6H PRN PRN Reason: Nausea Stop: 10/22/21 21:27 Ondansetron HCl (Ondansetron 8mg Odt) 8 mg PO Q8H PRN PRN Reason: Nausea Stop: 10/22/21 21:36 Oxycodone HCl (Oxycodone Hcl Ir 5 Mg Tab (Immediate Release)) 5 mg PO Q4H PRN PRN Reason: Pain Stop: 10/06/21 19:23 Last Admin: 09/23/21 00:58 Dose: 5 mg Documented by: Sodium Chloride (Sodium Chloride 0.65% Na Soln 45 Ml ([place])) 0 sprays HAYES PRN PRN PRN Reason: Nasal Congestion Stop: 10/23/21 12:59
[2021-09-23] MEDS ORDERED: GADOBUTROL 65ML VIAL IV ONE (14:20)
--- NOTE | 2021-09-23 14:54 | Magnetic Resonance Report ---
MRI OF THE BRAIN WITHOUT AND WITH IV CONTRAST CLINICAL HISTORY: Brain metastases. Lung cancer. COMPARISON STUDY: MRI of the brain March 09, 2021. Head CT September 22, 2021. TECHNIQUE: Utilizing a 1.5 Emely magnet and dedicated coil, multiplanar, multiecho imaging of the br ain was performed pre and postcontrast administration. IV administration of 8.5 mL of Gadavist contr ast was uneventful. Thin cut T1 post contrast imaging was performed with multiplanar reformats. FINDINGS: There are no foci of restricted diffusion to suggest acute infarct. There has been interval development of numerous supratentorial and infratentorial enhancing intra-axial lesions since MRI of March 09, 2021. The largest is a 2 cm lesion within the right cerebellar hemisphere. This has mild ass ociated vasogenic edema. This lesion demonstrates inherent T1 hyperintensity likely related to blood products. This is also hypointense on the gradient echo sequence. There is hypointensity of numerous additional lesions suggestive of blood products. Several these lesions were hyperdense on unenhanced CT. There is also a 1.6 cm lesion within the posterior medial right temporal lobe. This has moderate associated vasogenic edema with mild mass effect upon the adjacent portion of the right lateral ventr icle. Otherwise, the ventricular system is unremarkable. Basal cisterns are patent. There is no evid ence for herniation. No extra-axial fluid collections are present. Calvarial signal is within normal limits. Mild mucosal thickening of the left sphenoid sinus is noted. There is no mastoid fluid. Flow- voids for the major intracranial vessels are present. IMPRESSION: Interval development of numerous enhancing lesions since MRI of March 09, 2021 consistent with extensive metastatic disease. Numerous lesions contains blood products suggestive of hemorrhagic metastases. Moderate mass effect associated with a right temporal lobe lesion. ACT 112: Negative or not required by law. Electronically signed by: Ponce Jacome M.D. 09/23/2021 2:52 PM
[2021-09-23] MEDS: LORATADINE 10 MG TAB PO SCH (20:44)
[2021-09-23] MEDS: dexAMETHasone 4 MG TAB PO SCH (20:44)
[2021-09-24] MEDS: LEVOTHYROXINE SODIUM 125 MCG TABLET PO SCH (06:00)
[2021-09-24] MEDS: dexAMETHasone 4 MG TAB PO SCH (06:00)
[2021-09-24] MEDS ORDERED: levETIRAcetam 500 MG TAB PO SCH (06:00)
[2021-09-24 07:54] VITALS: TEMP 98.1; O2SAT 93
[2021-09-24 07:58] LABS: Hematocrit (blood only) 33.8 % (37-47); Hemoglobin 11.8 g/dL (12.0-16.0); Mean Corpuscular Hemoglobin 34.4 pg (25-34); Mean Corpuscular Hgb Conc 34.9 g/dL (32-36); Mean Corpuscular Volume 98.5 fL (80-100); Mean Platelet Volume 9.6 fL (7.4-10.4); Platelet Count 233 K/uL (130-400); RDW Coefficient of Variation 11.8 % (11.5-14.5); RDW Standard Deviation 42.5 fL (36.4-46.3); Red Blood Count 3.43 M/uL (4.2-5.4)
[2021-09-24 08:29] LABS: BUN Creatinine Ratio 35.1 (10-20); Calcium 9.1 mg/dl (8.5-10.1); Creatinine Clr Calc Pharmacy 80.1 ml/min; Est GFR (African American) 100.6 ml/min; Est GFR (Non-African American) 86.8 ml/min; Potassium 4.3 mmol/L (3.5-5.1)
--- NOTE | 2021-09-24 09:12 | Consultation Report ---
MEDICAL ONCOLOGY CONSULTATION DATE OF SERVICE: 09/24/2021. REASON FOR CONSULTATION: A 60-year-old female with new onset seizures and [employer] metastatic disease. 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 She originally was staged IIIA T2, N2, M0. Completed 4 cycles of etoposi de and Cisplatin with concurrent radiotherapy. She completed her fourth and final cycle on . The patient had followup CAT scan, which revealed an enlarging right adrenal lesion, which was th ought to be metastatic disease. Thus recommended, she be placed on topotecan and the patient complet ed first cycle. I had last seen her in the office on 09/04/2021. I believe she received her first c ourse of topotecan on 09/12/2021. For the most part patient has otherwise been doing well. On the d ay of admission, apparently, the patient had a tonic-clonic seizure, which was witnessed by her husba nd apparently there is a diffuse shaking. The patient actually bit her tongue. The event lasted for approximately 5 minutes. also reported postictal period. The patient was subsequently brou ght to the emergency room. Imaging showed numerous brain mets, the largest being 19 x 15 mm in the r ight temporal lobe with no evidence of midline shift or mass effect. She was subsequently started on Keppra and Decadron. This morning when I saw patient at bedside, she feels well. She is actually a nxious to be discharged home. She reports no fevers, chills, or sweats. Her appetite and weight hav e remained stable. Not surprisingly, she is cytopenias attributable to chemotherapeutic effect. PAST MEDICAL HISTORY: Positive for metastatic large cell neuroendocrine carcinoma, hypothyroidism, a nd I think this really is her medical history. PAST SURGICAL HISTORY: Repair of rotator cuff, EBUS, tubal ligation, hysterectomy, and thyroidectomy . CURRENT MEDICATIONS: Ibuprofen 200 mg p.o. q. 6 hours p.r.n., levothyroxine 125 mcg p.o. daily, brooke tadine 10 mg p.o. at bedtime, Ativan 0.5 mg p.o. b.i.d. p.r.n., multivitamin 1 tablet p.o. daily, Zof ran 8 mg p.o. q. 8 hours p.r.n. ALLERGIES: BACTRIM, PENICILLIN, AND AMOXICILLIN. FAMILY HISTORY: Sister with a history of seizure disorder, COPD. Father succumbed to sepsis. Radha sloan succumbed to colorectal cancer, also suffered from uterine cancer. SOCIAL HISTORY: Quit smoking in 2000. She is . She has a 12.5 pack year history of smoking. Negative for alcohol or illicit drugs. REVIEW OF SYSTEMS: CONSTITUTIONAL: Negative for fevers, chills or sweats. She is not anorexic. Denies weight loss. SKIN: No rashes or lesions. No history of dermatoses. HEENT: She denies any preceding headaches, lightheadedness or dizziness. No acute visual or hearing deficits. No sinus symptoms, sore throat or dysphagia. LYMPH: No history of lymphoproliferative disease. CARDIAC: Negative for angina or palpitations. No history of coronary artery disease. PULMONARY: Positive for a large cell lung cancer, status post chemoradiation. No cough or hemoptysi s reported. Presently, the patient recently recovered from COVID-19. GASTROINTESTINAL: Negative for abdominal pain, nausea, vomiting, diarrhea or constipation, hematoche nelly or melena stools. GENITOURINARY: No hematuria, dysuria, urinary incontinence. PSYCHIATRIC: Negative for anxiety, depression, or psychoses. MUSCULOSKELETAL: Negative for focal muscle weakness. No arthralgias or myalgias. ENDOCRINE: Positive for hypothyroidism. Negative for diabetes mellitus. NEUROLOGIC: Positive for new onset brain mets and new onset seizure. HEMATOLOGIC: Positive for anemia. PHYSICAL EXAMINATION: GENERAL: Very pleasant 60-year-old female, awake, alert and appropriate, in no acute distr ess. VITAL SIGNS: Temperature 37.1, pulse 80, respiratory rate 16, blood pressure 131/72. SKIN: Warm, dry, noncyanotic without petechia, rash or ecchymosis. HEENT: Head is atraumatic, normocephalic. Eyes: PERRLA. EOMI. Sclerae are nonicteric. No conjunc tival injection. Nares are patent without rhinorrhea or discharge. Throat clear. Tongue midline. Mucous membranes are moist. NECK: Supple without JVD or thyromegaly. LYMPH: No cervical, supraclavicular palpable nodes. HEART: Regular rate and rhythm. No clicks, rubs, murmurs or gallops. LUNGS: Clear to auscultation bilaterally. ABDOMEN: Soft, nontender, nondistended, without palpable hepatosplenomegaly. EXTREMITIES: No clubbing, cyanosis or edema. NEUROLOGIC: The patient is awake, alert and oriented x3. Cranial nerves grossly intact. LABORATORY DATA: WBC count 5340, hemoglobin 11.5, platelet count 247,000. Sodium 133, potassium 4.7 , chloride 99, carbon dioxide 27, creatinine 0.83, BUN 20. IMPRESSION: 1. New onset seizure (tonic-clonic). 2. New onset brain mets. 3. Metastatic high-grade neuroendocrine (large cell) carcinoma. 4. Previous COVID-19 infection. 5. Deep venous thrombosis prophylaxis. PLAN: It was my pleasure to visit with the patient today at bedside. This lady was diagnosed with a stage IIIA high-grade neuroendocrine large cell lung cancer in February of this year. She completed Cis platin and etoposide x4 cycles with concurrent radiation therapy in June. Post-treatment scans re vealed a very good thoracic response; however, remained however, a right adrenal nodule thought to be larger, concerning for expanding metastatic disease. Thus recommended topotecan, which was recently started. I believe the patient received 1 cycle thus far. Not surprisingly, she unfortunately has developed brain metastatic disease. Agree with incorporation antiepileptics and dexamethasone. Radi ation oncology should be consulted and perhaps MRI of the brain done in the next 24 hours or so to fu rther characterize these lesions moving forward. The patient has appropriate followup at [facility] and we will plan on resuming topotecan as scheduled. Agree with medical management otherwise. Patient expre ssed interest in going home and as long there is close followup with radiation oncology, I see no otto son medically why she cannot be discharged later on today. The patient is aware that she will not be driving and stated that she really has not been driving since original diagnosis. I have nothing fu rther to add at this time. Thank you very much for allowing me to participate in her care. Job ID: [id number]
--- NOTE | 2021-09-24 09:39 | Electrocardiogram Report ---
Test Reason : Blood Pressure : / mmHG Vent. Rate : 102 BPM Atrial Rate : 102 BPM P-R Int : 160 ms QRS Dur : 084 ms QT Int : 330 ms P-R-T Axes : 043 024 029 degrees QTc Int : 430 ms Sinus tachycardia Otherwise normal ECG When compared with ECG of 22-SEP-2021 13:56, No significant change was found Confirmed by Josh Minor ([id number]) on 09/24/2021 9:38:58 AM Referred By: REFERRED SELF Confirmed By:Josh Minor
[2021-09-24] MEDS ORDERED: levETIRAcetam 500 MG TAB PO STA (10:40)
--- NOTE | 2021-09-24 10:48 | Discharge Summary ---
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 As per , at noon time, the patient was noted to become shaking all over her body, bit her tongue, no incontinence. It lasted for 5 minutes. After that, she was confused. She was almost confused until she came to the ER. Currently, alert and oriented. In the ER, imaging studies showed numerous brain mets, the largest being 19 x 15 mm in the right temporal lobe and also no evidence of midline shift or mass effect. The ER physician loaded with Keppra and gave a dose of Decadron. Currently, the patient denies any headache, was having a headache earlier. No blurred visions, no runny nose, no sore throat, no cough, no chest pain, denies any shortness of breath, no nausea, no abdominal pain. She is somewhat constipated. Normal bladder movements. Ambulates okay. No swelling in the legs. Appetite is not that great. Currently hemodynamically stable. The patient says she is not COVID vaccinated. She had COVID in May. Again, she had COVID symptoms and she was diagnosed again with COVID on 09/11/2021, prior to that she had symptoms for 4-5 days. Currently rapid test is negative here in the ER. Currently, resting comfortably. Admission Exam Per Admitting Provider PHYSICAL EXAMINATION: GENERAL: The patient is of moderate build, not in acute distress. VITAL SIGNS: Temperature 36.3, pulse 82, respiratory rate 18, blood pressure 126/74, oxygen 95% on room air. HEENT: Pupils equal, round, and reactive to light. Oral mucosa moist. NECK: No JVD, no neck masses. CARDIOVASCULAR: S1 and S2 heard. Regular rate and rhythm. No murmur, no gallop. RESPIRATORY SYSTEM: Normal AP diameter. No accessory muscle use. No wheezing, no crackles. ABDOMEN: Soft, bowel sounds present, nontender, no distention. CENTRAL NERVOUS SYSTEM: Cranial nerves II-XII grossly intact, nonfocal. EXTREMITIES: No edema, no erythema. Principal Diagnosis New onset seizure Lung cancer with Brain metastasis covid-19 Discharge Exam CONSTITUTIONAL: WNWD, vitals as above, generally well-appearing, NAD EYES: normal conjunctivae, no scleral icterus ENT: external ear and nose normal, MMM NECK: trachea midline RESPIRATORY: clear to auscultation bilaterally, no crackles, rales or wheezes, normal respiratory effort CARDIOVASCULAR: regular rate and rhythm, S1 and 2 heard without murmurs, gallops or rubs, no JVD, no peripheral edema GASTROINTESTINAL: soft, nontender, ND, no guarding MUSCULOSKELETAL: strength 5/5 throughout, head is normocephalic and atraumatic, SKIN: warm and dry NEUROLOGIC: CN 2-12 grossly intact, no sensory deficit, normal cognition, normal speech, no tremor, no gross focal deficits. PSYCHIATRIC: alert cooperative and oriented to person, place and time. Discharge Data Allergies Allergy/AdvReac Type Severity Reaction Status Date / Time sulfamethoxazole Allergy Severe Severe Verified 09/27/21 08:06 [From Bactrim] Headaches trimethoprim [From Bactrim] Allergy Severe Severe Verified 09/27/21 08:06 Headaches Penicillins Allergy Intermediate severe Verified 09/27/21 08:06 headaches Sulfa (Sulfonamide Allergy Intermediate severe Verified 09/27/21 08:06 Antibiotics) headaches amoxicillin AdvReac Severe Yeast Verified 09/27/21 08:06 Infection Consultations 09/22/21 16:01 ED Decision to Admit Stat 09/23/21 08:00 Consult Neurology Routine Consult Oncology Routine Consult Radiation Oncology Routine Ordered Studies Laboratory Results WBC 8.50 K/uL (4.8-10.8) 09/24/21 07:34 RBC 3.43 M/uL (4.2-5.4) L 09/24/21 07:34 Hgb 11.8 g/dL (12.0-16.0) L 09/24/21 07:34 Hct 33.8 % (37-47) L 09/24/21 07:34 MCV 98.5 fL (80-100) 09/24/21 07:34 MCH 34.4 pg (25-34) H 09/24/21 07:34 MCHC 34.9 g/dL (32-36) 09/24/21 07:34 RDW Std Deviation 42.5 fL (36.4-46.3) 09/24/21 07:34 RDW Coeff of Deanna 11.8 % (11.5-14.5) 09/24/21 07:34 Plt Count 233 K/uL (130-400) 09/24/21 07:34 MPV 9.6 fL (7.4-10.4) 09/24/21 07:34 Immature Gran % (Auto) 0.2 % 09/23/21 08:14 Neut % (Auto) 91.9 % 09/23/21 08:14 Lymph % (Auto) 7.5 % 09/23/21 08:14 Johnston % (Auto) 0.4 % 09/23/21 08:14 Eos % (Auto) 0.0 % 09/23/21 08:14 Baso % (Auto) 0.0 % 09/23/21 08:14 Neut # (Auto) 4.91 K/uL (1.4-6.5) 09/23/21 08:14 Lymph # (Auto) 0.40 K/uL (1.2-3.4) L 09/23/21 08:14 Johnston # (Auto) 0.02 K/uL (0.11-0.59) L 09/23/21 08:14 Eos # (Auto) 0.00 K/uL (0-0.5) 09/23/21 08:14 Baso # (Auto) 0.00 K/uL (0-0.2) 09/23/21 08:14 Immature Gran # (Auto) 0.01 K/uL (0.00-0.02) 09/23/21 08:14 Sodium 135 mmol/L (136-145) L 09/24/21 07:34 Potassium 4.3 mmol/L (3.5-5.1) 09/24/21 07:34 Chloride 101 mmol/L (98-107) 09/24/21 07:34 Carbon Dioxide 28 mmol/L (21-32) 09/24/21 07:34 Anion Gap 6 (3-11) 09/24/21 07:34 BUN 26 mg/dl (6-23) H 09/24/21 07:34 Creatinine 0.74 mg/dl (0.6-1.2) 09/24/21 07:34 Est Cr Clr Drug Dosing 80.1 ml/min 09/24/21 07:34 Est GFR ( Amer) 100.6 ml/min 09/24/21 07:34 Est GFR (Non-Af Amer) 86.8 ml/min 09/24/21 07:34 BUN/Creatinine Ratio 35.1 (10-20) H 09/24/21 07:34 Glucose 113 mg/dl (70-99) H 09/24/21 07:34 Osmolality 289 mOsm/kg (280-300) 09/23/21 08:14 Calcium 9.1 mg/dl (8.5-10.1) 09/24/21 07:34 Magnesium 1.7 mg/dl (1.7-2.4) 09/23/21 08:14 Total Bilirubin 0.4 mg/dl (0.2-1.0) 09/22/21 12:48 AST 16 U/L (13-39) 09/22/21 12:48 ALT 14 U/L (7-52) 09/22/21 12:48 Alkaline Phosphatase 61 U/L (34-104) 09/22/21 12:48 Troponin I < 0.03 ng/ml (0-0.04) 09/22/21 12:48 Total Protein 6.8 gm/dl (6.0-8.3) 09/22/21 12:48 Albumin 4.1 gm/dl (3.4-5.0) 09/22/21 12:48 Globulin 2.7 gm/dl (2.5-4.0) 09/22/21 12:48 Albumin/Globulin Ratio 1.5 (0.9-2) 09/22/21 12:48 Urine Color Yellow 09/23/21 Unknown Urine Appearance Clear (Clear) 09/23/21 Unknown Urine pH 5.5 (4.5-7.5) 09/23/21 Unknown Ur Specific [place] 1.023 (1.000-1.030) 09/23/21 Unknown Urine Protein Negative (Negative) 09/23/21 Unknown Urine Glucose (UA) Negative (Negative) 09/23/21 Unknown Urine Ketones Negative (Negative) 09/23/21 Unknown Urine Blood Negative (Negative) 09/23/21 Unknown Urine Nitrite Negative (Negative) 09/23/21 Unknown Urine Bilirubin Negative (Negative) 09/23/21 Unknown Urine Urobilinogen Negative (Negative) 09/23/21 Unknown Ur Leukocyte Esterase Negative (Negative) 09/23/21 Unknown Urine WBC (Auto) 1-5 /hpf (0-5) 09/22/21 16:04 Urine RBC (Auto) 0-4 /hpf (0-4) 09/22/21 16:04 U Hyaline Cast (Auto) 1-5 /lpf (0-5) 09/22/21 16:04 U Epithel Cells (Auto) >30 /lpf (0-5) H 09/22/21 16:04 Urine Bacteria (Auto) Negative (Negative) 09/22/21 16:04 Urine Osmolality 547 mOsm/kg (500-800) 09/23/21 Unknown Ur Random Sodium 83 mmol/L 09/23/21 Unknown SARS-CoV-2, RNA, NAAT NEGATIVE (NEGATIVE) 09/22/21 16:04 Impressions Chest X-Ray 09/22/21 14:09 XR chest 1V portable CLINICAL HISTORY: covid pos, recent seizure. Evaluate cardiac border status COMPARISON STUDY: 06/07/2021 TECHNIQUE: 1 view of the chest FINDINGS: Single frontal view of the chest demonstrates the cardiomediastinal silhouette to be within normal limits. A Port-A-Cath is in place. There is again mild asymmetric elevation of the left hemidiaphragm. The lungs are clear of alveolar opacities. There is no evidence for pleural effusion. There is no evidence for vascular congestion. There is no acute osseous pathology. IMPRESSION: No acute cardiopulmonary disease. ACT 112: Negative or not required by law. Electronically signed by: Deven Deras M.D. 09/22/2021 2:[address] 09/22/21 14:15 CT head/brain wo con CLINICAL HISTORY: new onset seizure COMPARISON STUDY: 04/06/2021 CT DOSE: TECHNIQUE: Standard CT of the Brain was performed without IV contrast. A dose lowering technique was utilized adhering to the principles of ALARA. FINDINGS: Compared to the previous examination, there has been interval development of numerous increased attenuation lesions within the brain representing the presence of diffuse metastatic disease. The largest lesion is w ithin the right temporal lobe measuring approximately 19 x 15 mm. Surrounding cerebral edema is present. Extraaxial space: There is no evidence for subdural hematoma. There are no extra-axial fluid collections. Ventricles and cisterns: The ventricles are normal in size and configuration. There is no evidence for midline shift or mass effect. Parenchyma: There is no subarachnoid or intraparenchymal hemorrhage. There is no evidence for an acute infarct or cerebral edema. There is homogeneous attenuation of the brain parenchyma. Osseous structures: There is no evidence for an acute fracture. The visualized paranasal sinuses are clear. The mastoid air cells are clear bilaterally. Soft tissues: There is no evidence for focal soft tissue swelling. IMPRESSION: Interval development of numerous increased attenuation lesions throughout the brain characteristic of metastatic brain disease. ACT 112: Negative or not required by law. Electronically signed by: Deven Deras M.D. 09/22/2021 3:27 PM Chest CTA 09/22/21 14:53 CT ANGIOGRAM OF THE CHEST CLINICAL HISTORY: Covid. Seizure. Lung cancer. COMPARISON STUDY: Chest x-ray dated 09/22/2021. Chest CT scans dated 08/25/2021 and 03/28/2021 TECHNIQUE: Following the IV administration of 96 cc of Optiray 320, CT angiogram of the chest was performed from the upper abdomen to the thoracic inlet utilizing the pulmonary embolus protocol. Images are reviewed in the axial, sagittal, and coronal planes. 3-D MIPS images are created and assessed. IV contrast was administered without complication. A dose lowering technique was utilized adhering to the principles of ALARA. The examination is degraded by motion artifact, as well as streak artifact from the arms which could not be elevated above the chest. CT DOSE: 1275.47 mGy.cm FINDINGS: Thyroid: Atrophic versus surgically absent. Thoracic aorta: There is mild atherosclerotic calcification of the thoracic aorta, which is normal in caliber and demonstrates standard 3-vessel arch anatomy. No dissection is seen. Pulmonary vasculature: The pulmonary trunk is normal in caliber. There are no filling defects identified in main, lobar, or segmental pulmonary branches to suggest pulmonary embolus. Heart: A right internal jugular central venous infusion port is in place. The heart is mildly enlarged noting a small pericardial effusion. Lungs and pleural spaces: Emphysematous change is noted. A spiculated mass at the left apex is similar in appearance to the 08/25/2021 examination, measuring 3.1 x 1.7 cm in axial dimension. Segmental atelectasis is present at the left lung base and in the lingula. There is no airspace consolidation typical for pneumonia or pleural effusion. A 1.0 cm groundglass lesion in the right lower lobe on image #143 is also unchanged. Foci of parenchymal scarring are seen throughout both lungs. The trachea appears clear. Fluid/debris fills the left upper and left lower lobe airways. Mediastinum: Prevascular soft tissue thickening persists. No discrete mediastinal mass lesion is identified. No adenopathy is seen. Sarah: Falls of the left hilum is unchanged. No right hilar adenopathy is seen. Axillae: There is no axillary lymphadenopathy. Upper abdomen: There is a 1.5 cm cyst in the left lobe of the liver. Partially visualized upper abdominal viscera is otherwise grossly unremarkable. Skeletal structures: The skeletal structures are osteopenic. Mild degenerative change is seen throughout the thoracic spine. No lytic or blastic bony lesions are seen. IMPRESSION: 1. Streak and motion degraded examination. 2. There is no evidence of pulmonary embolus in the main, lobar, or segmental pulmonary arteries. 3. Cardiomegaly and emphysema. 4. A 3.1 cm spiculated mass lesion is again seen at the left apex. This is not significantly changed from 08/25/2021 but has significantly decreased in size from 03/28/2021. The large prevascular mass lesion seen on 03/28/2021 has almost completely resolved. 5. A 1.0 cm groundglass lesion in the right lower lobe is unchanged and remains suspicious for a low-grade adenocarcinoma. 6. There is no airspace consolidation typical for pneumonia or pleural effusion. 7. Fluid/debris is seen within the left upper and left lower lobe airways. Correlate clinically for evidence of aspiration. 8. Additional findings as above. ACT 112: Negative or not required by law. Electronically signed by: Jr Nugent M.D. 09/22/2021 3:44 PM Brain MRI 09/23/21 08:00 MRI OF THE BRAIN WITHOUT AND WITH IV CONTRAST CLINICAL HISTORY: Brain metastases. Lung cancer. COMPARISON STUDY: MRI of the brain March 09, 2021. Head CT September 22, 2021. TECHNIQUE: Utilizing a 1.5 Emely magnet and dedicated coil, multiplanar, multiecho imaging of the brain was performed pre and postcontrast administration. IV administration of 8.5 mL of Gadavist contrast was uneventful. Thin cut T1 post contrast imaging was performed with multiplanar reformats. FINDINGS: There are no foci of restricted diffusion to suggest acute infarct. There has been interval development of numerous supratentorial and infrat entorial enhancing intra-axial lesions since MRI of March 09, 2021. The largest is a 2 cm lesion within the right cerebellar hemisphere. This has mild associated vasogenic edema. This lesion demonstrates inherent T1 hyperintensity likely related to blood products. This is also hypointense on the gradient echo sequence. There is hypointensity of numerous additional lesions suggestive of blood products. Several these lesions were hyperdense on unenhanced CT. There is also a 1.6 cm lesion within the posterior medial right temporal lobe. This has moderate associated vasogenic edema with mild mass effect upon the adjacent portion of the right lateral ventricle. Otherwise, the ventricular system is unremarkable. Basal cisterns are patent. There is no evidence for herniation. No extra-axial fluid collections are present. Calvarial signal is within normal limits. Mild mucosal thickening of the left sphenoid sinus is noted. There is no mastoid fluid. Flow-voids for the major intracranial vessels are present. IMPRESSION: Interval development of numerous enhancing lesions since MRI of March 09, 2021 consistent with extensive metastatic disease. Numerous lesions contains blood products suggestive of hemorrhagic metastases. Moderate mass effect associated with a right temporal lobe lesion. ACT 112: Negative or not required by law. Electronically signed by: Ponce Jacome M.D. 09/23/2021 2:52 PM Hospital Course (1) New onset seizure: 2/2 brain mets and new right temporal lobe lesion (2) Brain metastases: numerous hemorrhagic metastases present. Radiation oncology is aware of patient who is to followup with them early this next week. Will convert her to oral steorids and oral Keppra and ensure she is fine overnight. (3) Small cell lung cancer, left upper lobe: Spiculated mass still present on chest imaging. Currently under the care of Dr. Stiles , oncologist. Oxycodone PRN pain. (4) COVID-19: Recent re-exposure to covid-19 positive son around the first of the year and had a cough and respiratory symptoms, likely representing reinfection. Treating this as a reinfection as she had a bout of covid last year, also. Cont covid isolation. (5) DVT prophylaxis: SCDs/ Lovenox contraindicated in setting of hemorrhagic mets to brain Full Code Dispo-likely to home tomorrow as long as no further seizure episodes, Oncology is ok with this plan and she continues to remain without focal neurologic deficits. DO Nakul Bernal Hospitalist Total Time Total Time Spent Total Time Spent (In Minutes): 60 Discharge Plan Discharge Items Patient Disposition: Home - Self-Care Reason For Visit: SEIZURE Discharge Diagnosis: New onset seizure Lung cancer with Brain metastasis covid-19 Activity: As commented below Non-emergency contact: Primary Care Provider and Oncologist Call non-emergency contact if: you have any medication questions Follow-up/Referrals: Ofe Zavala DO [Primary Care Provider] - Diet: Regular Diet Texture: Easy to Chew Addtl Attending Provider Instructions: Please take all medications as instructed on discharge list below. You will need to continue this indefinitely, or until tapered off by one of your physicians. The Keppra is an anti-seizure medication and requires periodic blood work which may be ordered by your primary care physician on follow-up. The decadron is a steroid which will help to control the swelling in your brain caused by the new lesions. A Keppra level is recommended in 7 days on the current dose. Please contact Dr. Citlali Baeza's office by Angel of this week if you don't hear from his office regarding your appointment time this week. This will be to set you up for radiation therapy to your brain. Please continue to follow-up with Dr. Stiles regarding your ongoing cancer treatments and lab monitoring. It is also recommended that you follow-up with your primary care provider within 1 week of hospital discharge to ensure you are still doing well on the new medications. Please note that restrictions apply to people with seizures including no heights, no swimming or baths, and no driving. Use caution anywhere you may become incapacitated and have a backup plan or someone with you. It was a pleasure taking care of you! Please call if you have any questions or problems. You can reach a [facility] hospitalist on duty at [facility] 24 hours a day by calling [phone]. Take care of yourself. DO Nakul Bernalist Pending Studies at Discharge: No Stand-Alone Forms: My [facility] Medications and DC Order Prescriptions: New levetiracetam [Keppra] 1,000 mg tablet 1,000 mg PO Q12H Qty: 60 RF: 0 dexamethasone 4 mg Tablet 4 mg PO Q8H Qty: 90 RF: 0 oxycodone 5 mg tablet 5 mg PO Q8H PRN (Reason: pain) Qty: 20 RF: 0 Continued levothyroxine 125 mcg capsule 125 mcg PO QAM RF: 0 loratadine [Claritin] 10 mg tablet 10 mg PO HS RF: 0 lorazepam 0.5 mg tablet 0.5 mg PO BID PRN (Reason: Anxiety) RF: 0 ascorbic acid (vitamin C) 1,000 mg Tablet,Chewable 1 g PO QDL RF: 0 cyanocobalamin (vitamin B-12) Tablet,Chewable 1 tab PO QDL RF: 0 ondansetron 8 mg Tablet,Disintegrating 8 mg PO Q8H PRN (Reason: Nausea) RF: 0 multivitamin Tablet 1 tab PO QDL RF: 0 Discontinued ibuprofen 200 mg tablet 200 mg PO Q6H PRN (Reason: Pain) RF: 0 Discharge Orders: Discharge Order (Routine); Ordered 09/24/21 Ordered By: Flori Maria Admission Data Admit Date/Time: 09/22/21 18:57 Attending Provider: Flori Maria Admit Provider: Kasi Mckeon Primary Care Provider: Ofe Zavala Other Providers: Kasi Mckeon ; Evy Moore ; Kenyon Worthington ; Evy Jensen ; Robert Bishop ; Virgil Stiles V. ; Citlali Baeza Other Interventions: Discharge Summary Assessment (RN) Last Done: 09/24/21 11:17
[2021-09-24 11:19] VITALS: BP 118/77; PULSE 82
== END 2021-09-24 12:03 | disposition home or self-care (01) | DRG 54 ==
LOC: ED 13:30 → SUATTDRO 18:57 → 2S 18:57